=== PATIENT | female | born 1945 | race Caucasian/White ===

== ENCOUNTER 2019-07-15 06:29 | Day surgery (SDC) | payer MEDICARE, SELFPAY ==
[2019-07-07 14:19] VITALS: BMI 23.3
--- NOTE | 2019-07-08 12:59 | HP_ITS ---
Intake Vital Signs 07/07/19 Body Mass Index (BMI) 23.3 07/07/19 Height 5 ft 1 in 07/07/19 Weight: 126 lb 07/07/19 Body Mass Index (BMI) 23.8 07/07/19 Blood Pressure 145/81 H 07/07/19 Blood Pressure Location Rt brachial 07/07/19 Blood Pressure Position Sitting 07/07/19 Respiratory Rate 18 07/07/19 Pulse Rate 77 07/07/19 Pulse Source Monitor 07/07/19 Temperature 98.3 F 07/07/19 Pulse Ox 96 07/07/19 Oxygen Delivery Method room air Intake Visit Reasons: C-Scope Consult Chief Complaint: Nonstemi Senior Service Aide Required: No Is patient in pain?: No Allergies diphtheria,pertussis (acellular),te [From Adacel(Tdap Adolesn/Adult)(PF)] Allergy (Verified 07/07/19 14:16) Hives Sulfa (Sulfonamide Antibiotics) Allergy (Verified 07/07/19 14:16) Rash Medications Aspirin [Aspirin, Baby] 81 mg PO DAILY@0800 08/05/15 [History Confirmed 07/07/19] Calcium Carbonate/Vitamin D3 [Calcium 600 + D Tablet] 3 ea PO BID 08/05/15 [History Confirmed 07/07/19] Clopidogrel Bisulfate [Plavix] 75 mg PO DAILY@0800 #30 tab 08/25/15 [Rx Confirmed 07/07/19] Atorvastatin Calcium [Lipitor] 20 mg PO QHS 04/04/16 [History Confirmed 07/07/19] Biotin/Keratin [Biotin Plus Keratin Tablet] 1 ea PO BID 04/04/16 [History Confirmed 07/07/19] Carbamazepine [Tegretol] 200 mg PO BIDCM 04/04/16 [History Confirmed 07/07/19] Etodolac [Lodine] 200 mg PO BIDCM PRN 08/08/17 [History Confirmed 07/07/19] levothyroxine 75 mcg tablet 75 mcg PO QDAY tab 12/13/17 [History Confirmed 07/07/19] nitroglycerin 0.4 mg sublingual tablet 0.4 mg SUBLINGUAL Q5M PRN 12/13/17 [History Confirmed 07/07/19] cholecalciferol (vitamin D3) 5,000 unit tablet 5,000 unit PO DAILY 10/29/18 [History Confirmed 07/07/19] methocarbamol 500 mg tablet 500 mg PO TID PRN tab 09/23/18 [History Confirmed 07/07/19] metoprolol tartrate 25 mg tablet 12.5 mg PO BID #90 tab 05/21/19 [Rx Confirmed 07/07/19] [facility] Medical History Presence of stent in coronary artery (Chronic ~08/12/15) Essential hypertension (Chronic) HLD (hyperlipidemia) (Chronic) Fatigue (Chronic) Atherosclerotic heart disease of [place] coronary artery without angina pectoris (Chronic) Dyspnea (Chronic) Abnormal results of pulmonary function studies (Chronic) [place] (obstructive sleep apnea) (Chronic) Other chest pain (Chronic) Hypothyroidism (Chronic) CHF (congestive heart failure) (Chronic) TIA (transient ischemic attack) (Acute) Abnormal cardiac enzyme level (Chronic) Headache (Chronic) Scoliosis (Chronic) Subendocardial myocardial infarction (Chronic) Trigeminal neuralgia (Chronic) HTN (hypertension) (Inactive) Surgical History History of left heart catheterization (LHC) (Chronic) Presence of coronary angioplasty implant and graft (Chronic ~08/12/15) H/O partial thyroidectomy (Resolved ~11/16/11) Family History Father Cancer Mother Breast cancer Social History (Updated 07/08/19 @ 12:59 by Chrystal Lopes PA-C) Smoking Status: Never smoker alcohol intake: never substance use type: does not use caffeine: Yes Type: carbonated beverages, coffee, tea what type of physical activity do you participate in: other details: PT frequency: 1-2 times per week duration: 30-45 minutes/day seatbelt use: always do you feel safe at home: Yes HPI HPI HPI: HUSSEIN GARCIA, is a 74 F who presents to the office today for HPI HPI Surgical H&P: Yes HPI: HUSSEIN GARCIA, is a 74 F who presents to the office today for screening colonoscopy. Patient denies change in bowel habits, melena, constipation, diarrhea. She notes very occasional bouts of bright red blood per rectum when wiping with toilet paper. She denies pain at the rectum. She denies heartburn, reflux symptoms, chest pain or shortness of breath. Patient's last colonoscopy was by Dr. Sweet on 04/01/2014. Findings included hemorrhoids found on digital rectal exam and moderate diverticulosis in the entire exam. Patient notes her father had colon cancer. Patient notes previous myocardial infarction and stent placement approximately 4 years ago. Patient is currently on Plavix. Dr. Arenas is her ip litigation associate. Patient denies previous complications with anesthesia. Patient does note that a little bit of anesthesia goes a long way. ROS General General: Yes fatigue; no weight change, appetite, colon cancer, breast cancer or weakness HEENT HEENT: No difficulty swallowing, eye injury, eye surgery, swollen glands or hoarseness Endo Endocrine: Yes thyroid disease; no diabetes mellitus, thyroid cancer, Hair loss, heat intolerance or cold intolerance Skin Skin: No rash or changing moles Breast Breast: No left breast lump, right breast lump, nipple discharge, breast pain, abnormal mammogram, abnormal US or breast enlargement Musc Musculoskeletal: Yes back problems; no arthritis, rheumatoid arthritis, gout or joint pain Cardio Cardiovascular: Yes heart attack and heart stent; no murmur, pacemaker, heart disease, atrial fibrillation, high blood pressure, palpitations, shortness of breat with exertion or chest pain Psych Psychiatric: No depression, anxiety or hearing voices Resp Respiratory: No shortness of breath, Yes sleep apnea, No cough, No COPD, No asthma, No emphysema, No wheezing Gastro Gastrointestinal: No abdominal pain, No nausea or vomiting, No diarrhea, No constipation, No blood in stool, No acid reflux, No hemorrhoids, No ulcers, No gallbladder problem, No black,tarry stools Wil[place] Hematologic: Yes blood thinners, No blood disorders, No bleeding, No anemia, No blood clots Neuro Neurologic: No system reviewed and no additional complaints, except as docu, No as per HPI, No abnormal walking, No abnormal hearing, No abnormal movements, No abnormal speech, No behavioral changes, No burning sensations, No confusion, No seizure-like activity, No unsteadiness, No dizziness, No localized weakness, No frequent falls, No headache(s), No lack of coordination, No loss of vision, No memory loss, Yes numbness, No other visual disturbances, No radiating pain, No restless legs, No sensory deficit, No fainting, Yes tingling, No tremor(s), No weakness, Yes other (Stroke/TIA) Exam Const General: cooperative, healthy appearing, comfortable, no acute distress HENMT Head: normal to inspection Eyes General: appearance normal, both eyes and all related structures Neck Neck: normal visual inspection Neck mass: No Chest Breast Palpation: No nipple discharge Resp Effort & Inspection: normal respiratory effort Auscultation: clear to auscultation bilaterally Cardio Rate: regular rate Rhythm: regular rhythm Heart Sounds: no murmurs GI Inspection: normal to inspection Palpation: soft Auscultation: normal bowel sounds Skin General: no rashes or lesions noted Neuro General: no focal motor deficits, CN's II-XI intact bilaterally Extrem General: normal to inspection Psych Appearance: grossly normal Affect: normal affect Assessment & Plan Problems 1. Encounter for screening colonoscopy Z11.[address] Sweet will plan to perform a colonoscopy under procedural sedation. Procedure details, risks and benefits have been explained to the patient. We will plan to utilize Miralax prep for a bowel prep. Patient has had the opportunity to ask and have questions answered. Patient verbally understands and agrees with the plan. Patient may continue her aspirin. She will hold her Plavix for 3 days prior to the procedure. Coding Level of Care Code Off vis,new,level 3 Diagnoses Encounter for screening colonoscopy Z.07/08/19 2579 <Electronically signed by Chrystal call PA-C> Date _ Chrystal Lopes PA-C I have re-examined the patient. There are no clinical changes since date of exam.
[2019-07-15] VITALS (12 sets, daily range): BP systolic 90–146; BP diastolic 57–95; PULSE 67–80; RESP 14–16; TEMP 36.2–36.8; O2SAT 70–100; BMI 23.6
[2019-07-15] MEDS: Lactated Ringers 1,000 ML 75 ML IV (07:06)
--- NOTE | 2019-07-15 08:20 | OP.ENDO_ITS ---
07/15/2019 Salbador Krueger [address] [id number] Re : Colonoscopy procedure for Cherelle Lindsey Dear Dr. Krueger This procedure was performed on Monday, July 15, 2019. My impressions and recommendations are as follows: Impressions : - Hemorrhoids found on perianal exam. - Diverticulosis in the sigmoid colon and in the descending colon. - Tortuous colon. - No specimens collected. Recommendations : - Discharge patient to home. - Resume previous diet. - Continue present medications. - Repeat colonoscopy in 5 years for surveillance. My findings are described in the full procedure note, which is enclosed. If I can be of further assistance, please feel free to contact me at Doctor phone number(s): Work: . Sincerely, Abdirahman Sweet MD 07/15/2019 8:20:32 AM This report has been signed electronically.
== END 2019-07-15 10:11 | disposition home or self-care (01) ==
LOC: EN 06:30 → AC 06:37
PROVIDERS: Family Provider Student in an Organized Health Care Education/Training Program; PCP Student in an Organized Health Care Education/Training Program; Referring Provider Student in an Organized Health Care Education/Training Program; Visit Provider Surgery
PROC: 0DJD8ZZ Inspection of Lower Intestinal Tract, Via Natural or Artificial Opening Endoscopic (ICD-10-PCS; CPT 45378; principal; 2019-07-15 07:25)
DX: Z12.11 Encounter for screening for malignant neoplasm of colon (principal); K57.30 Diverticulosis of large intestine without perforation or abscess without bleeding; K64.9 Unspecified hemorrhoids; I25.2 Old myocardial infarction; Z80.0 Family history of malignant neoplasm of digestive organs; E78.5 Hyperlipidemia, unspecified; I25.10 Atherosclerotic heart disease of native coronary artery without angina pectoris; G47.33 Obstructive sleep apnea (adult) (pediatric); E03.9 Hypothyroidism, unspecified; G50.0 Trigeminal neuralgia; I10 Essential (primary) hypertension; Z88.2 Allergy status to sulfonamides; Z86.73 Personal history of transient ischemic attack (TIA), and cerebral infarction without residual deficits; Z79.82 Long term (current) use of aspirin; Z79.02 Long term (current) use of antithrombotics/antiplatelets; Z95.5 Presence of coronary angioplasty implant and graft
CPT/HCPCS: G0105; 99152; 99153; J7120; J2310

== ENCOUNTER → 2020-01-15 13:38 | Outpatient (CLI) | payer MEDICARE, SELFPAY ==
[2020-01-01 09:17] VITALS: BMI 24.1
--- NOTE | 2020-01-15 13:40 | ECHOD_ITS ---
Reason For Study: DYSPNEA/SOB Procedure This was a 2D Doppler, Color Flow transthoracic echocardiogram. The exam was of adequate technical quality. Exam performed in department. Left Ventricle Normal LV size. Sigmoid septum. Left ventricular systolic function is normal. The estimated ejection fraction is 70 %. No evidence for diastolic dysfunction. No regional wall motion abnormalities noted. Right Ventricle Normal right ventricle. Normal systolic function. Atria Normal left atrium. Normal right atrium. No doppler evidence for ASD. Mitral Valve There is no mitral annular calcification. Normal mitral valve. Trivial mitral valve insufficiency. Tricuspid Valve Normal tricuspid valve. Mild tricuspid valve insufficiency. Right ventricular systolic pressure estimated to be 34 mmHg. Aortic Valve Trisinus/trileaflet aortic valve. Normal aortic valve. Pulmonic Valve The pulmonic valve is not well visualized. Trivial pulmonic valve insufficiency. Great Vessels Normal sized aortic root. Pericardium/Pleural No pericardial effusion. MMode/2D Measurements & Calculations LVIDd: 3.3 cm IVSd: 1.1 cm Ao root diam: 3.3 cm LVIDs: 1.9 cm LVPWd: 0.96 cm LA dimension: 2.8 cm RVDd: 2.8 cm FS: 41.7 % LAV(MOD-bp): 32.5 ml LA A4 area: 13.0 cm2 RA A4 area: 11.1 cm2 LAV(MOD-bp) Indexed: 20.3 ml/m2 LAV(MOD-sp2): 36.4 ml LAV(MOD-sp4): 30.1 ml Time Measurements MV dec time: 0.19 sec Doppler Measurements & Calculations MV E max konrad: 59.8 cm/sec Lat Peak E' Konrad: 5.0 cm/sec Med Peak E' Konrad: 5.7 cm/sec MV A max konrad: 79.2 cm/sec E/E' lat: 11.9 E/E' med: 10.5 MV E/A: 0.75 Ao V2 max: 116.2 cm/sec LV V1 max: 98.6 cm/sec PA V2 max: 96.6 cm/sec Ao max P.4 mmHg LV V1 max P.9 mmHg Ao V2 mean: 89.1 cm/sec LV V1 mean P.2 mmHg Ao mean P.4 mmHg LV V1 mean: 69.8 cm/sec Ao V2 VTI: 23.9 cm LV V1 VTI: 19.8 cm TR max konrad: 278.0 cm/sec TR max P.9 mmHg Interpretation Summary Left ventricular systolic function is normal. The estimated ejection fraction is 70 %. Sigmoid septum. Trivial mitral valve insufficiency. Mild tricuspid valve insufficiency. Trivial pulmonic valve insufficiency. Right ventricular systolic pressure estimated to be 34 mmHg. No evidence for diastolic dysfunction. Ordering Physician: Hossein Wright Referring Physician: Obed Cespedes Performed By: Connie Madrid RDCS, RVT
== END ==
PROVIDERS: PCP Student in an Organized Health Care Education/Training Program; Referring Provider Nurse Practitioner Family; Visit Provider Nurse Practitioner Family
DX: I25.10 Atherosclerotic heart disease of native coronary artery without angina pectoris (principal); I50.9 Heart failure, unspecified; R06.09 Other forms of dyspnea
CPT/HCPCS: 93306

== ENCOUNTER 2020-01-16 18:23 | Observation (INO) | payer MEDICARE, SELFPAY ==
[2020-01-01 09:17] VITALS: BMI 24.1
[2020-01-16 18:24] VITALS: BP 188/102; PULSE 76; RESP 15; TEMP 36; O2SAT 99; BMI 22.8
--- NOTE | 2020-01-16 18:47 | RAD_ITS ---
STUDY: X-RAY - PELVIS AND RIGHT HIP REASON FOR EXAM: Female, 74 years old. FALL, HIP AND ANKLE PAIN TECHNIQUE: 3 views of the pelvis and hip. COMPARISON: None. FINDINGS: There is a non-specific bowel gas pattern. Normal visualized soft tissue structures. Normal bilateral iliac wings, sacroiliac joints and visualized sacrum. Normal bilateral superior and inferior pubic rami. Normal pubic symphysis. Normal bilateral ischial tuberosities. There is left hip pin fixation with intramedullary alireza. Normal visualized femoral head. Normal acetabulum. Normal hip joint. RAD/HIP, UNI W/ Pelvis 2-3 Views IMPRESSION: Normal x-ray examination of the pelvis and right hip. Electronically Signed: Zehra Rodriguez, at 19:58 EST Tel , Service support ,
--- NOTE | 2020-01-16 18:47 | CT_ITS ---
STUDY: CT BRAIN WITHOUT CONTRAST REASON FOR EXAM: Female, 74 years old. Trauma RADIATION DOSAGE (If Supplied By Facility): CTDIvol = ( 44.99 ) mGy, DLP = ( 779.24 ) mGycm TECHNIQUE: Transaxial CT imaging of the brain was performed without administration of intravenous contrast material. Individualized dose optimization techniques were used for this CT. COMPARISON: 08 August 2017 FINDINGS: Brain parenchyma is without focal lesions, mass effect, acute intracranial hemorrhage, extra parenchymal fluid collections, hydrocephalus or herniation. The skull is intact. CT/Brain/Head without Contrast IMPRESSION: 1. Normal CT brain. No acute intracranial injury. Electronically Signed: Zehra Rodriguez, at 19:16 EST Tel , Service support ,
--- NOTE | 2020-01-16 18:52 | ED.DCSUM_ITS ---
- ER Visit Summary Date of Service: 01/16/20 Chief Complaint: Tripped and fell with right lateral forehead head injury on Plavix History of Present Illness: The patient is a [address] CAD with [place] with one cardiac stent on Plavix. Also has a history of prior left femur fracture with alireza. Patient tripped and fell this evening at home at 1745. When she fell she struck the right side of her head along her pentecostalism on the fireplace. She denies any loss of conscious. She also complains of right hip and right ankle pain. She was helped up. Has ambulated since then. Prior to the fall she was feeling fine. She denies any neck pain. No numbness or weakness to the upper or lower extremities. Physical Examination: Older female vital signs are stable. HEENT exam pupils round reactive light. She has a small 1 to 2 cm laceration right lateral forehead that is actively bleeding. There is a small hematoma. She is holding pressure to it with a clot. Pupils round reactive light. Scalp otherwise no other signs of trauma. There is dried blood. C-spine nontender. Trachea m idline. Lungs clear to auscultation. Heart regular rhythm no murmur. Chest wall nontender. Abdomen soft nontender. Pelvic girdle intact. Mild pain on palpation to right hip. No shortening or rotation. She is able to flex and extend her right hip. Right knee nontender. Right ankle mildly swollen with an abrasion. No gross deformity. Dorsi plantarflexion intact. Right upper and left upper extremities are unremarkable with normal range of motion and typewriter tester strength. No deformities or tenderness. Left lower extremity is nontender normal range of motion. Back is nontender. Neurologically she is awake and alert with no focal motor deficits. Test Results: CAT scan of her brain without contrast as read by the radiologist and reviewed by me shows no acute abnormality. No skull fracture. No intracranial bleed. Right hip and pelvis x-ray views read by myself shows no acute abnormality. No fracture. No dislocation. Right ankle x-ray 3 views read by me acute abnormality. No fracture or dislocation. Emergency Department Course and Treatment: This is up-to-date. She will need a CAT scan and x-rays for her fall. Eventually I will suture of the right lateral forehead laceration. Her tetanus is up-to-date. Procedure note. Right lateral forehead laceration to 9 cm. Lidocaine with epinephrine. Washed with Shur-Clens and saline explored. Closed using two 5-0 Ethilon simple interrupted sutures. Proper hemostasis wound closure obtained. Family and patient instructed on wound care. Suture removal in 7 to 10 days. Repeat exam she is doing well. There are no new injuries. She is a hematoma on her right hip but does not appear to be expanding. Patient will be ambulated prior to discharge by nursing Treatment Plan: We start the patient try to ambulate her and given her age, head injury, right hip contusion and right ankle sprain she was unable to walk. We attempted a second time later when we let her rest and again was unable. I discussed with her and the family and the hospitalist and she will come in overnight. Disposition: dc Impression: Acute fall with right sided head injury on Plavix Concussion Right lateral forehead laceration with ER repair of 2.5 cm Fall with right hip contusion and hematoma Fall with right ankle sprain Unable to ambulate secondary to all the above This note was generated with [employer] dictation software. It may contain incorrect words, spelling, and punctuation that were not noted in review of the chart prior to signing ED Disposition - Plan for ED Patient: Disposition: Home or Assisted Living Instructions: Sprain, Ankle, with X-Ray, CONCUSSION w/ Wake Up, Hip Contusion, LACERATION, Face (Suture or Tape) Referrals: Salbador Krueger, [Primary Care Provider] - 1 Week Additional Instructions: Wound care. Keep area dry and clean. Apply antibiotic ointment to laceration repaired once daily. Suture removal in 7 to 10 days. Ice to scalp, hip and ankle. Aircast to help you walk on your ankle sprain. Watch the bruising of the right hip if it is getting a lot larger have it reevaluated. Follow-up if hip pain and ankle pain do not continually improve over the next 1 to 2 weeks. At this time the x-rays are unremarkable. A CAT scan of your head is negative. There is no bleeding. Return if severe headache, intractable vomiting or not acting her normal self. Hold your Plavix dose tomorrow morning then restart normally on Sunday. Tylenol for pain. Stay with someone tonight or they should stay in her house to keep an eye on you. Be very careful walking due to your bruised hip, sprained ankle and your head injury you are at extremely high risk to fall again.
--- NOTE | 2020-01-16 19:08 | RAD_ITS ---
STUDY: X-RAY - RIGHT ANKLE REASON FOR EXAM: Female, 74 years old. FALL, HIP AND ANKLE PAIN TECHNIQUE: 3 view(s) of the ankle. COMPARISON: None. FINDINGS: Normal visualized distal tibia and fibula. Normal medial and lateral malleoli. Normal tibiotalar articulation and ankle mortise. Normal visualized talus and calcaneus. The visualized subtalar, talonavicular, calcaneocuboid and tarsal articulations are normal. The soft tissue structures are unremarkable. RAD/Ankle min 3 Views IMPRESSION: Normal x-ray examination of the ankle. Electronically Signed: Zehra Rodriguez, at 19:59 EST Tel , Service support ,
[2020-01-16] MEDS: Lidocaine/Epi/Tetracaine 50 ML 1 APPLIC TOPICAL (19:15)
--- NOTE | 2020-01-16 19:56 | DCINST.ED_ITS ---
ED Disposition - Plan for ED Patient: Disposition: Home or Assisted Living Instructions: CONCUSSION w/ Wake Up, LACERATION, Face (Suture or Tape), Hip Contusion, Sprain, Ankle, with X-Ray Referrals: Salbador Krueger DO [Primary Care Provider] - 1 Week Additional Instructions: Wound care. Keep area dry and clean. Apply antibiotic ointment to laceration repaired once daily. Suture removal in 7 to 10 days. Ice to scalp, hip and ankle. Aircast to help you walk on your ankle sprain. Watch the bruising of the right hip if it is getting a lot larger have it reevaluated. Follow-up if hip pain and ankle pain do not continually improve ov er the next 1 to 2 weeks. At this time the x-rays are unremarkable. A CAT scan of your head is negative. There is no bleeding. Return if severe headache, intractable vomiting or not acting her normal self. Hold your Plavix dose tomorrow morning then restart normally on Sunday. Tylenol for pain. Stay with someone tonight or they should stay in her house to keep an eye on you. Be very careful walking due to your bruised hip, sprained ankle and your head injury you are at extremely high risk to fall again.
--- NOTE | 2020-01-16 21:05 | ED.RN ---
PT WAS WALKED WITH THIS RN AND NEEDED THE HELP OF ONE FAMILY MEMBER ON THE OTHER SIDE. PT WAS EXTREMELY DIZZY WHILE AMBULATING TO THE BATHROOM. PT NEEDED ASSISTANCE WHILE IN THE BATHROOM. PT STOPPED AND ROCKED BACK AND FORTH SEVERAL TIMES DURING AMBULATION DUE TO DIZZINESS
--- NOTE | 2020-01-16 21:21 | PCM.HP.STD ---
Problem List (1) Fall Status: Acute (2) Head injury Status: Acute (3) Right ankle injury Status: Acute (4) Injury of right hip Status: Acute History of Present Illness Date of Admission: 01/16/20 Chief Complaint: FALL The patient is a 74 year old F with a significant history of hypertension; hyperlipidemia; congestive heart failure; CAD status post stents who presents emergency department with a fall. Patient tripped over a treadmill and fell. She landed on a fireplace with the right side of her forehead. She also sustained injury on her right hip and her right ankle. She has pain in these areas. At the emergency department emergency department doctor placed 2 stitches at the injury site of the right forehead. Patient was made to ambulate at the emergency department. She reported with ambulation she felt lightheaded and needed help walking. Decision was made to admit patient. Patient reports that her last tetanus injection was less than 10 years ago. Past Medical History Past Medical History (Chronic Problems): Chronic Problems (Last Reviewed 01/16/20 @ 21:[address] Fernando Norman MD) Presence of stent in coronary artery (Chronic ~08/12/15) PTCA/JONNIE to mid LAD 08/12/2015; Essential hypertension (Chronic) HLD (hyperlipidemia) (Chronic) Fatigue (Chronic) Atherosclerotic heart disease of [place] coronary artery without angina pectoris (Chronic) PTCA with JONNIE to mid LAD 08/12/2015; [facility]: 08/11/2015 Dyspnea (Chronic) Abnormal results of pulmonary function studies (Chronic) [place] (obstructive sleep apnea) (Chronic) Other chest pain (Chronic) Hypothyroidism (Chronic) CHF (congestive heart failure) (Chronic) Medical History: Medical History (Last Reviewed 01/17/20 @ 00:[address] Fernando Norman MD) Presence of stent in coronary artery (Chronic) Onset Date: ~08/12/15 Z95.5 PTCA/JONNIE to mid LAD 08/12/2015; Essential hypertension (Chronic) I10 HLD (hyperlipidemia) (Chronic) E78.5 Fatigue (Chronic) R53.83 Atherosclerotic heart disease of [place] coronary artery without angina pectoris (Chronic) I25.10 PTCA with JONNIE to mid LAD 08/12/2015; [facility]: 08/11/2015 Dyspnea (Chronic) R06.00 Abnormal results of pulmonary function studies (Chronic) R94.2 [place] (obstructive sleep apnea) (Chronic) G47.33 Other chest pain (Chronic) R07.89 Hypothyroidism (Chronic) E03.9 CHF (congestive heart failure) (Chronic) I50.9 TIA (transient ischemic attack) G45.9 Abnormal cardiac enzyme level R74.8 Headache R51 Scoliosis 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 Trigeminal neuralgia G50.0 HTN (hypertension) (Inactive) I10 Allergies diphtheria,pertussis (acellular),te [From Adacel(Tdap Adolesn/Adult)(PF)] Allergy (Verified 01/01/20 09:52) Hives Sulfa (Sulfonamide Antibiotics) Allergy (Verified 01/01/20 09:52) Rash Home Medications: Ambulatory Orders Medication Instructions Recorded Aspirin [Aspirin, Baby] 162 mg PO DAILY@0800 08/05/15 Calcium Carbonate/Vitamin D3 3 ea PO BID 08/05/15 [Calcium 600 + D Tablet] Clopidogrel Bisulfate [Plavix] 75 mg PO DAILY@0800 #30 tab 08/25/15 Atorvastatin Calcium [Lipitor] 20 mg PO QHS 04/04/16 Biotin/Keratin [Biotin Plus 2 ea PO QHS 04/04/16 Keratin Tablet] Carbamazepine [Tegretol] 200 mg PO BIDCM 04/04/16 Etodolac [Lodine] 200 mg PO BIDCM PRN 08/08/17 levothyroxine 75 mcg tablet 75 mcg PO SUTUTHFR tab 12/13/17 nitroglycerin 0.4 mg sublingual 0.4 mg SUBLINGUAL Q5M PRN 12/13/17 tablet cholecalciferol (vitamin D3) 125 5,000 unit PO DAILY 09/23/18 mcg (5,000 unit) tablet methocarbamol 500 mg tablet 500 mg PO TID PRN tab 09/23/18 metoprolol tartrate 25 mg tablet 12.5 mg PO BID #90 tab 05/21/19 Levothyroxine Sodium [Synthroid] 150 mcg PO MOWESA 01/16/20 Surgical History: Surgical History (Last Reviewed 01/17/20 @ 00:[address] Fernando Norman MD) History of left heart catheterization (LHC) Z98.890 [facility]: 08/11/2015 Presence of coronary angioplasty implant and graft Onset Date: ~08/12/15 Z95.5 PTCA with JONNIE to mid LAD 08/12/2015; H/O partial thyroidectomy Onset Date: ~11/16/11 E89.0 Surgical History: - - partial thyroidectemy,left femur fracture with alireza placement, back operation due to sciatic nerve problems Psychiatric History: No pertinent psych hx FORENSIC PSYCHIATRIST History: No pertinent FORENSIC PSYCHIATRIST history Lives: With Family Smoking Status: Never smoker Alcohol: None - *Family History Maternal Family History: Family History (Last Reviewed 01/17/20 @ 00:[address] Fernando Norman MD) Father Cancer Mother Breast cancer History Items: - - mother had a mastectemy, age 73 alzheimers, tia Paternal Family History: Family History (Last Reviewed 01/17/20 @ 00:[address] Fernando Nroman MD) Father Cancer Mother Breast cancer History Items: - - father of luekemia, lot of other cancer colon and lung Sibling Family History: Family History (Last Reviewed 01/17/20 @ 00:[address] Fernando Norman MD) Father Cancer Mother Breast cancer History Items: - - brother gets migraines Offspring Family History: Family History (Last Reviewed 01/17/20 @ 00:[address] Fernando Norman MD) Father Cancer Mother Breast cancer History Items: - - 2 children Review of Systems Constitutional: Denies: Chills, Fever, Weight Change HEENT: Denies: Head Aches, Sinus Congestion, Sinus Drainage Cardiovascular: Reports: Light Headedness. Denies: Chest Pain, Palpitations Respiratory: Denies: Cough, Shortness of breath at rest, Sputum production Gastrointestinal: Denies: Abdominal Pain, Nausea, Vomiting Genitourinary: Denies: Dysuria Musculoskeletal: Denies: Joint Pain, Joint Tenderness Skin: Denies: Rash, Wounds Neurological: Denies: Numbness, Tingling, Focal weakness Psychiatric: Denies: Anxiety, Depression, Homicidal Ideations, Suicidal Ideations Hematologic/ Lymphatic: Denies: Easy Bruising, Easy Bleeding VTE Information - Inpt Only VTE Present on Admission: No VTE Mechan Device Prophylaxis: SCD's VTE Pharm Prophylaxis ordered?: No Patient Problems: Active and Suspected Problems (Last Reviewed 01/16/20 @ 21:[address] Fernando Norman MD) Fall (Acute) Head injury (Acute) Right ankle injury (Acute) Injury of right hip (Acute) - Physical Exam Vitals/I&O's: Vital Signs Temp Pulse Resp BP Pulse Ox 96.8 F L 76 15 188/102 H 99 01/16/20 18:24 01/16/20 18:24 01/16/20 18:24 01/16/20 18:24 01/16/20 18:24 Oxygen Delivery Method Room Air Weight: 56.699 kg Body Mass Index (BMI) 22.8 General: Alert, Oriented x3, Cooperative HEENT: PERRLA, EOMI, Normocephalic, - - Swelling on right forehead with stitches in place. Neck: Supple, No JVD, Negative Carotid Bruits Lungs: Clear to auscultation, Normal air movement, No rhonchi, No wheeze, No rales Cardiovascular: Regular rate, No murmurs Abdomen: Bowel Sounds Present, Soft, Non Tender Extremities: No edema, Capillary Refill Less than 3 Seconds Skin: - - Abrasion on right ankle, tender. Swelling on the right lateral hip, tender. Musculoskeletal: Tenderness Neurological: Cranial nerves II-XII grossly intact Psych/Mental Status: Normal Affect, Appropriate Assessment/Plan All Active Problems (Last Reviewed 01/16/20 @ 21:[address] Fernando Norman MD) Fall (Acute) Head injury (Acute) Right ankle injury (Acute) Injury of right hip (Acute) The patient is a 74 year old F with a significant history of hypertension; hyperlipidemia; congestive heart failure; CAD status post stents who presents at the emergency department with a fall and injury at multiple sites including her scalp.. Fall with injury to scalp; right hip and right ankle Normal CT brain. Normal ankle x-ray Normal hip and pelvis x-ray PT and OT to work with patient. Hold aspirin and Plavix. Received Tylenol at the emergency department. Will start patient on scheduled Tylenol and PRN oxycodone. Hold Plavix and aspirin. Ice to painful areas as needed She reports that her last tetanus shot was less than 10 years ago. CAD status post stents Aspirin and Plavix held in the setting of recent fall. Lipitor and metoprolol continued. Hypothyroidism Levothyroxine continued Chronic pain: methocarbamol continued. Etodolac held to prevent bleeding. Hyperlipidemia Lipitor continued. Hypertension Blood pressure is stable in regard to her age. Metoprolol continued. Trend blood pressure and adjust blood pressure medications. Trigeminal neuralgia Carbamazepine continued Hypothyroidism Synthroid continued DVT prophylaxis SCD. Code Visit OBSV E&M: 41710 Initial observation care L2
[2020-01-16 21:28] VITALS: BP 138/84; PULSE 78; RESP 16; O2SAT 97
[2020-01-16 21:29] VITALS: BP 138/84; PULSE 78; RESP 16; O2SAT 97
[2020-01-16] MEDS: Acetaminophen 500 MG Tablet 1000 MG PO (21:44)
[2020-01-16 22:00] VITALS: BP 150/79; PULSE 79; RESP 16; TEMP 36.7; O2SAT 95
[2020-01-16 22:03] VITALS: BMI 23.3
[2020-01-16 22:14] VITALS: BMI 23.3
[2020-01-16 22:34] VITALS: PULSE 78
[2020-01-16] MEDS: Atorvastatin Calcium 20 MG Tablet PO (22:34)
[2020-01-16] MEDS: oxyCODONE 5 MG Tablet PO (22:34)
[2020-01-16] MEDS: Metoprolol Tartrate 25 MG Tablet 12.5 MG PO (22:34)
[2020-01-17] VITALS (8 sets, daily range): BP systolic 94–121; BP diastolic 58–67; PULSE 64–76; RESP 16–18; TEMP 36.3–36.6; O2SAT 95–98
[2020-01-17] MEDS: Levothyroxine 150 MCG Tablet PO (04:52)
[2020-01-17] MEDS: Acetaminophen 500 MG Tablet PO ×4 (04:52→23:56)
[2020-01-17] MEDS: Methocarbamol 500 MG Tablet PO ×2 (04:56→21:53)
[2020-01-17] MEDS: oxyCODONE 5 MG Tablet PO ×3 (07:17→21:57)
[2020-01-17] MEDS: Calcium Carb/Vitamin D 1 TABLET Tablet 3 TABLET PO ×2 (09:07→17:23)
[2020-01-17] MEDS: carBAMazepine 200 MG Tablet PO ×2 (09:08→17:22)
[2020-01-17] MEDS: Metoprolol Tartrate 25 MG Tablet 12.5 MG PO ×2 (10:52→21:52)
--- NOTE | 2020-01-17 12:44 | PCM.PN.HOSP ---
Patient Problems: Active and Suspected Problems (Last Reviewed 01/17/20 @ 00:[address] Fernando Norman MD) Fall (Acute) Head injury (Acute) Right ankle injury (Acute) Injury of right hip (Acute) Reason for Visit: fall Subjective: Still dizzy, constantly, but worse with movement. Has had vertigo before, which this feels similar to, but did not have headache. Constant diffuse headache. Vitals/I&O's: Vital Signs Temp Pulse Resp BP Pulse Ox 36.5 C L 76 16 103/63 97 01/17/20 11:18 01/17/20 11:18 01/17/20 11:18 01/17/20 11:18 01/17/20 11:18 Oxygen Delivery Method Room Air Weight: 57.9 kg Body Mass Index (BMI) 23.3 Intake and Output for Last 24 Hours 01/15/20 01/16/20 01/17/20 23:59 23:59 23:59 Output Total 200 / 200 500 / 500 Balance -200 / -200 -500 / -500 General: Alert, Cooperative, No apparent distress HEENT: Atraumatic, PERRLA, Normocephalic Oral: Moist Mucosa, No Gingival or Mucosal Lesions/ Ulcerations Neck: No Nodes, Trachea Midline Lungs: Clear to auscultation, Normal air movement, No rhonchi, No wheeze, No rales Cardiovascular: Regular rate, Regular Rhythm, Normal S1, Normal S2 Abdomen: Bowel Sounds Present, Soft, Non Tender, Non-Distended Extremities: No edema, No Calf Tenderness Skin: No rashes, No breakdown Musculoskeletal: No Tenderness to Palpation of Joints or Extremities, No Muscle Wasting Neurological: - - Love Hallpike performed on the right with reproducible dizziness, but not noticeable nystagmus. Psych/Mental Status: Normal Affect, Appropriate Current Medications Acetaminophen (Tylenol) 500 mg PO Q6 [facility] Last Admin: 01/17/20 12:35 Dose: 500 mg Documented by: Atorvastatin Calcium (Lipitor) 20 mg PO QHS [facility] Last Admin: 01/16/20 22:34 Dose: 20 mg Documented by: Calcium/Vitamin D (Os-M[place] 500mg + D) [facility] Last Admin: 01/17/20 09:07 Dose: 3 tablet Documented by: Carbamazepine ([facility]egretol) [facility] Last Admin: 01/17/20 09:08 Dose: 200 mg Documented by: Cholecalciferol (Vitamin D (25mcg)) 5,000 unit PO DAILY [facility] Last Admin: 01/17/20 09:08 Dose: 5,000 unit Documented by: Glucagon () 1 mg IM .X1 PRN PRN Reason: Hypoglycemia Dextrose (Dextrose 10%-Water) 250 mls @ 999 mls/hr IV .Q16M PRN; Protocol PRN Reason: HYPOGLYCEMIA Levothyroxine Sodium (Synthroid) 150 mcg PO MoWeSa@0600 [facility] Last Admin: 01/17/20 04:52 Dose: 150 mcg Documented by: Levothyroxine Sodium (Synthroid) 75 mcg PO SuTuThFr@0600 [facility] Meclizine HCl (Antivert) 12.5 mg PO TID PRN PRN PRN Reason: DIZZINESS Methocarbamol (Robaxin) 500 mg PO TID PRN PRN PRN Reason: Muscle spasms Last Admin: 01/17/20 04:56 Dose: 500 mg Documented by: Metoprolol Tartrate (Lopressor (Beta Roger)) 12.5 mg PO BID [facility] Last Admin: 01/17/20 10:52 Dose: 12.5 mg Documented by: Ondansetron HCl (Zofran) 4 mg IV Q8H PRN PRN PRN Reason: NAUSEA/VOMITING Oxycodone HCl (Oxyir) 5 mg PO Q4H PRN PRN PRN Reason: Pain Score 6-10/10 Last Admin: 01/17/20 07:17 Dose: 5 mg Documented by: Senna/Docusate Sodium (Senokot-S, Jyoti-Colace) 2 tablet PO BID PRN PRN PRN Reason: Constipation Sodium Chloride () 10 - 40 ml IV UD PRN PRN Reason: SALINE FLUSH STROKE Vital Signs/Narrative: Vital Signs Temp Pulse Resp BP Pulse Ox 01/17/20 11:18 36.5 C L 76 16 103/63 97 01/17/20 10:52 76 01/17/20 09:15 36.6 C 71 16 94/58 L 95 Medical Necessity - Tobacco Use Smoking Status: Never smoker Assessment/Plan All Active Problems (Last Reviewed 01/17/20 @ 00:[address] Fernando Norman MD) Fall (Acute) Head injury (Acute) Right ankle injury (Acute) Injury of right hip (Acute) 1. acute vertigo suspect d/t BPPV pt may have dislodged an otolith when she struck her head PRN meclizine PT for vestibular rehab 2. post-concussion syndrome d/w patient and family to minimize lights, screens and interactions at this time supportive mgmt 3. migraine aggravated by above minimize triggers no narcotics acetaminophen if persists, consider additional agents (dexamethasone, etc.) 4. VTE prophylaxis: mod risk. SCDs as patient not being discharged today. DW family at bedside. Code Visit OBSV E&M: 89439 Subsequent observation care L2
[2020-01-17] MEDS: Meclizine 12.5 MG Tablet PO ×2 (14:52→21:57)
[2020-01-17] MEDS: Atorvastatin Calcium 20 MG Tablet PO (21:52)
[2020-01-18] VITALS (8 sets, daily range): BP systolic 98–121; BP diastolic 43–80; PULSE 63–71; RESP 16; TEMP 36.3–36.6; O2SAT 94–99
[2020-01-18] MEDS: oxyCODONE 5 MG Tablet PO ×3 (03:59→16:33)
[2020-01-18] MEDS: Acetaminophen 500 MG Tablet PO ×4 (05:07→23:59)
[2020-01-18] MEDS: Levothyroxine 75 MCG Tablet PO (05:16)
[2020-01-18] MEDS: Calcium Carb/Vitamin D 1 TABLET Tablet 3 TABLET PO ×2 (08:28→16:33)
[2020-01-18] MEDS: Metoprolol Tartrate 25 MG Tablet 12.5 MG PO ×2 (08:29→21:39)
[2020-01-18] MEDS: carBAMazepine 200 MG Tablet PO ×2 (08:29→16:33)
[2020-01-18] MEDS: Meclizine 12.5 MG Tablet PO (08:32)
--- NOTE | 2020-01-18 10:44 | CT_ITS ---
STUDY: CT BRAIN WITHOUT CONTRAST REASON FOR EXAM: Female, 74 years old. Recent fall, headache. RADIATION DOSAGE (If Supplied By Facility): CTDIvol = ( 44.99 ) mGy, DLP = ( 846.73 ) mGycm TECHNIQUE: Transaxial CT imaging of the brain was performed without administration of intravenous contrast material. Individualized dose optimization techniques were used for this CT. COMPARISON: 01/16/2020. FINDINGS: Normal soft tissue structures. Normal calvarium. The ventricles are normal in size and position. There is prominence of the cortical sulci. There are areas of decreased attenuation within the white matter tracts of the supratentorial brain, consistent with microvascular disease changes. Normal basal ganglia and thalami. Normal brainstem. Normal cerebellum. There is no intracranial hemorrhage. There are no findings of an acute ischemic infarction. Normal visualized paranasal sinuses. CT/Brain/Head without Contrast IMPRESSION: No acute intracranial process. Electronically Signed: Remy Watkins MD at 13:44 EST Tel , Service support ,
--- NOTE | 2020-01-18 11:08 | NURSING ---
pt to ct scan
--- NOTE | 2020-01-18 16:16 | PN_ITS ---
Patient Problems: Active and Suspected Problems (Last Reviewed 01/17/20 @ 00:[address] Fernando Norman MD) Fall (Acute) Head injury (Acute) Right ankle injury (Acute) Injury of right hip (Acute) Reason for Visit: fall Subjective: Still with headache. Dizziness ongoing, but improved. Worse with mvmt. Vitals/I&O's: Vital Signs Temp Pulse Resp BP Pulse Ox 36.4 C L 71 16 106/62 96 01/18/20 13:59 01/18/20 13:59 01/18/20 13:59 01/18/20 13:59 01/18/20 13:59 Oxygen Delivery Method Room Air Weight: 57.9 kg Body Mass Index (BMI) 23.3 Intake and Output for Last 24 Hours 01/16/20 01/17/20 01/18/20 23:59 23:59 23:59 Intake Total 450 / 450 350 / 350 Output Total 200 / 200 500 / 500 Balance -200 / -200 -50 / -50 350 / 350 General: Alert, No apparent distress HEENT: EOMI, Normocephalic Oral: Moist Mucosa, No Gingival or Mucosal Lesions/ Ulcerations Lungs: Clear to auscultation, Normal air movement, No rhonchi, No wheeze, No rales Cardiovascular: Regular rate, Regular Rhythm, Normal S1, Normal S2, No murmurs Abdomen: Bowel Sounds Present, Soft, Non Tender, Non-Distended, No Hepato- splenomegaly Extremities: No edema, No Calf Tenderness Skin: No rashes, No breakdown Musculoskeletal: No Tenderness to Palpation of Joints or Extremities, No Muscle Wasting Psych/Mental Status: Normal Affect, Appropriate Current Medications Acetaminophen (Tylenol) 500 mg PO Q6 [facility] Last Admin: 01/18/20 11:34 Dose: 500 mg Documented by: Atorvastatin Calcium (Lipitor) 20 mg PO QHS [facility] Last Admin: 01/17/20 21:52 Dose: 20 mg Documented by: Calcium/Vitamin D (Os-[place] 500mg + D) [facility] Last Admin: 01/18/20 08:28 Dose: 3 tablet Documented by: Carbamazepine (Tegretol) 200 mg PO BIDCM [facility] Last Admin: 01/18/20 08:29 Dose: 200 mg Documented by: Cholecalciferol (Vitamin D (25mcg)) 5,000 unit PO DAILY [facility] Last Admin: 01/18/20 08:29 Dose: 5,000 unit Documented by: Glucagon () 1 mg IM .X1 PRN PRN Reason: Hypoglycemia Dextrose (Dextrose 10%-Water) 250 mls @ 999 mls/hr IV .Q16M PRN; Protocol PRN Reason: HYPOGLYCEMIA Levothyroxine Sodium (Synthroid) 150 mcg PO MoWeSa@0600 [facility] Last Admin: 01/18/20 05:07 Dose: 150 mcg Documented by: Levothyroxine Sodium (Synthroid) 75 mcg PO SuTuThFr@0600 [facility] Last Admin: 01/18/20 05:16 Dose: 75 mcg Documented by: Meclizine HCl (Antivert) 12.5 mg PO TID PRN PRN PRN Reason: DIZZINESS Last Admin: 01/18/20 08:32 Dose: 12.5 mg Documented by: Methocarbamol (Robaxin) 500 mg PO TID PRN PRN PRN Reason: Muscle spasms Last Admin: 01/17/20 21:53 Dose: 500 mg Documented by: Metoprolol Tartrate (Lopressor (Beta Roger)) 12.5 mg PO BID [facility] Last Admin: 01/18/20 08:29 Dose: 12.5 mg Documented by: Ondansetron HCl (Zofran) 4 mg IV Q8H PRN PRN PRN Reason: NAUSEA/VOMITING Oxycodone HCl (Oxyir) 5 mg PO Q4H PRN PRN PRN Reason: Pain Score 6-10/10 Last Admin: 01/18/20 08:32 Dose: 5 mg Documented by: Senna/Docusate Sodium (Senokot-S, Jyoti-Colace) 2 tablet PO BID PRN PRN PRN Reason: Constipation Sodium Chloride () 10 - 40 ml IV UD PRN PRN Reason: SALINE FLUSH STROKE Vital Signs/Narrative: Vital Signs Temp Pulse Resp BP Pulse Ox 01/18/20 13:59 36.4 C L 71 16 106/62 96 Medical Necessity - Tobacco Use Smoking Status: Never smoker Assessment/Plan All Active Problems (Last Reviewed 01/17/20 @ 00:[address] Fernando Norman MD) Fall (Acute) Head injury (Acute) Right ankle injury (Acute) Injury of right hip (Acute) 1. acute vertigo * suspect d/t BPPV * pt may have dislodged an otolith when she struck her head * PRN meclizine * PT for vestibular rehab 2. post-concussion syndrome * d/w patient and family to minimize lights, screens and interactions at this time * supportive mgmt 3. migraine * aggravated by above * minimize triggers * no narcotics * acetaminophen * if persists, consider additional agents (dexamethasone, etc.) * repeat head CT negative for bleed. will give 10mg of dexamethasone + prn sumatriptan and phenergan/diphenhydramine 4. VTE prophylaxis: mod risk. SCDs as patient not being discharged today. 5. Debility: therapy recommending additional therapy. Await case mgmt input. DW family at bedside. Code Visit OBSV E&M: 05722 Subsequent observation care L2
[2020-01-18] MEDS: DiphenhydrAMINE 25 MG Capsule 50 MG PO (16:33)
[2020-01-18] MEDS: 0.9% Saline Lock 10 ML Syringe IV (16:33)
[2020-01-18] MEDS: dexAMETHasone 10 MG/ML Vial IV (16:33)
[2020-01-18] MEDS: Atorvastatin Calcium 20 MG Tablet PO (21:39)
[2020-01-19 03:18] VITALS: BP 126/90; PULSE 67; RESP 16; TEMP 36.6; O2SAT 97
[2020-01-19] MEDS: Acetaminophen 500 MG Tablet PO ×3 (05:53→17:09)
[2020-01-19] MEDS: Levothyroxine 150 MCG Tablet PO (05:53)
[2020-01-19 07:27] VITALS: O2SAT 96
[2020-01-19] MEDS: Calcium Carb/Vitamin D 1 TABLET Tablet 3 TABLET PO ×2 (08:07→17:10)
[2020-01-19] MEDS: carBAMazepine 200 MG Tablet PO ×2 (08:07→17:09)
[2020-01-19 08:12] VITALS: PULSE 80
[2020-01-19] MEDS: Metoprolol Tartrate 25 MG Tablet 12.5 MG PO (08:12)
[2020-01-19 09:15] VITALS: BP 126/82; PULSE 80; RESP 16; TEMP 36.7; O2SAT 96
[2020-01-19] MEDS: diazePAM 2 MG Tablet PO ×2 (12:07→15:19)
[2020-01-19 15:24] VITALS: BP 119/69; PULSE 85; RESP 16; TEMP 36.4; O2SAT 98
--- NOTE | 2020-01-19 15:58 | PCM.DC ---
- Discharge Diagnoses Current Active Problems: Current Active and Chronic Problems (Last Reviewed 01/17/20 @ 00:[address] Fernando Norman MD) Fall (Acute) Head injury (Acute) Right ankle injury (Acute) Injury of right hip (Acute) You will use the following diet at home:: No restrictions Your food should be the consistency of: Regular Your liquids should be the consistency of: Regular/Thin Discharge Activity: Return to Normal Activity Weight Bearing Status: Full weight bearing Instructions: Sprain, Ankle, with X-Ray, CONCUSSION w/ Wake Up, Hip Contusion, LACERATION, Face (Suture or Tape) Additional Instructions: get your scalp sutures removed this Sunday Allergies/Adverse Reactions: Allergies diphtheria,pertussis (acellular),te [From Adacel(Tdap Adolesn/Adult)(PF)] Allergy (Verified 01/01/20 09:52) Hives Sulfa (Sulfonamide Antibiotics) Allergy (Verified 01/01/20 09:52) Rash Medications to take at Discharge Aspirin [Aspirin, Baby] 162 mg PO DAILY@0800 08/05/15 Calcium Carbonate/Vitamin D3 [Calcium 600 + D Tablet] 3 ea PO BID 08/05/15 Clopidogrel Bisulfate [Plavix] 75 mg PO DAILY@0800 #30 tab 08/25/15 Atorvastatin Calcium [Lipitor] 20 mg PO QHS 04/04/16 Biotin/Keratin [Biotin Plus Keratin Tablet] 2 ea PO QHS 04/04/16 Carbamazepine [Tegretol] 200 mg PO BIDCM 04/04/16 levothyroxine 75 mcg tablet 75 mcg PO SUTUTHFR tab 12/13/17 nitroglycerin 0.4 mg sublingual tablet 0.4 mg SUBLINGUAL Q5M PRN 12/13/17 cholecalciferol (vitamin D3) 125 mcg (5,000 unit) tablet 5,000 unit PO DAILY 09/23/18 methocarbamol 500 mg tablet 500 mg PO TID PRN tab 09/23/18 metoprolol tartrate 25 mg tablet 12.5 mg PO BID #90 tab 05/21/19 Levothyroxine Sodium [Synthroid] 150 mcg PO MOWESA 01/16/20 Diazepam [Valium] 2 mg PO TID PRN PRN 4 Days #10 tablet 01/19/20 The following prescriptions were given: Diazepam [Valium] 2 mg PO TID PRN PRN 4 Days #10 tablet PRN Reason: Dizziness Transmission Status: Pending to [facility] [place] Primary Care Physician: Salbador Krueger DO [Primary Care Provider] - 1 Week Please follow up with your Primary Care Physician in: this Sunday Test Results: Test results from this visit will be discussed in further detail at your follow-up appointment, if applicable.
--- NOTE | 2020-01-21 08:22 | DS.PCM_ITS ---
Discharge Date and Diagnosis Date of Admission: 01/16/20 Date of Discharge: 01/19/20 - Primary Discharge Diagnosis #1 acute benign vertigo with an overlay of postconcussive syndrome #2 postconcussive syndrome #3 migraine cephalgia #4 essential hypertension #5 atherosclerotic heart disease - Secondary Discharge Diagnosis Chronic Problems (Last Reviewed 01/17/20 @ 00:[address] Fernando Norman MD) Presence of stent in coronary artery (Chronic ~08/12/15) PTCA/JONNIE to mid LAD 08/12/2015; Essential hypertension (Chronic) HLD (hyperlipidemia) (Chronic) Fatigue (Chronic) Atherosclerotic heart disease of [place] coronary artery without angina pectoris (Chronic) PTCA with JONNIE to mid LAD 08/12/2015; [facility]: 08/11/2015 Dyspnea (Chronic) Abnormal results of pulmonary function studies (Chronic) [place] (obstructive sleep apnea) (Chronic) Other chest pain (Chronic) Hypothyroidism (Chronic) CHF (congestive heart failure) (Chronic) Hospital Course and Treatment Operations: None Procedures: None Summary of Care Provided: The patient is a 74 year old F who was seen in the emergency room at [facility] after sustaining a fall with a laceration to her right temporal scalp area. Patient tripped and fell near her treadmill and struck the right side of her head-she denied loss of consciousness. Patient had a CT of the emergency room which showed no evidence of intracranial trauma, her laceration was sutured with 2 simple interrupted sutures. Patient attempted to ambulate and complain of dizziness and was unable to walk. She was placed in observation status on [facility] 3 and OT and PT saw the patient. Patient complained of a headache which was felt to be secondary to migraine and this was treated also. On 01/19/2020, patient was seen and examined: On examination she appeared in good health and spirits. Vital signs as documented. Skin warm and dry and without overt rashes. Neck without JVD. Lungs clear. Heart exam notable for regular rhythm, normal sounds and absence of murmurs, rubs or gallops. Abdomen unremarkable and without evidence of organomegaly, masses, or abdominal aortic enlargement. Extremities nonedematous. Neuro: Cranial nerves II through XII are grossly intact, no focal motor deficits were noted, sensation to light touch and pinprick is intact. Psych: Patient is alert and oriented x3, she does not erin ear anxious or depressed On 01/19/2020, patient was seen and examined and felt to be in stable condition for discharge home - Physical Exam Vitals/I&O's: Vital Signs Temp Pulse Resp BP Pulse Ox 97.6 F L 85 16 119/69 98 01/19/20 15:24 01/19/20 15:24 01/19/20 15:24 01/19/20 15:24 01/19/20 15:24 Oxygen Delivery Method Room Air Weight: 57.9 kg Body Mass Index (BMI) 23.3 Discharge Activity: Return to Normal Activity Weight Bearing Status: Full weight bearing Home Medications: Medications to take at Discharge Aspirin [Aspirin, Baby] 162 mg PO DAILY@0800 08/05/15 Calcium Carbonate/Vitamin D3 [Calcium 600 + D Tablet] 3 ea PO BID 08/05/15 Clopidogrel Bisulfate [Plavix] 75 mg PO DAILY@0800 #30 tab 08/25/15 Atorvastatin Calcium [Lipitor] 20 mg PO QHS 04/04/16 Biotin/Keratin [Biotin Plus Keratin Tablet] 2 ea PO QHS 04/04/16 Carbamazepine [Tegretol] 200 mg PO BIDCM 04/04/16 levothyroxine 75 mcg tablet 75 mcg PO SUTUTHFR tab 12/13/17 nitroglycerin 0.4 mg sublingual tablet 0.4 mg SUBLINGUAL Q5M PRN 12/13/17 cholecalciferol (vitamin D3) 125 mcg (5,000 unit) tablet 5,000 unit PO DAILY 09/23/18 methocarbamol 500 mg tablet 500 mg PO TID PRN tab 09/23/18 metoprolol tartrate 25 mg tablet 12.5 mg PO BID #90 tab 05/21/19 Levothyroxine Sodium [Synthroid] 150 mcg PO MOWESA 01/16/20 Diazepam [Valium] 2 mg PO TID PRN PRN 4 Days #10 tab 01/19/20 Following Prescrptions Were Given to Patient: Diazepam [Valium] 2 mg PO TID PRN PRN 4 Days #10 tab PRN Reason: Dizziness Transmission Status: Received by [id number] [place] Primary Care Physician: Salbador Krueger DO [Primary Care Provider] - 1 Week Please follow up with your Primary Care Physician in: this Sunday Patient Instructions: Sprain, Ankle, with X-Ray, CONCUSSION w/ Wake Up, Hip Contusion, LACERATION, Face (Suture or Tape) Disposition: Home Minutes spent on discharge:: 30 Patient Condition:: Stable Medical Necessity - Tobacco Use Smoking Status: Never smoker Meaningful Use Info Meaningful Use Diagnoses (Choose all that apply): None applicable Code Visit OBSV E&M: 35399 Observation care discharge
== END 2020-01-19 17:36 | disposition home or self-care (01) ==
LOC: ED 21:30 → MS3 22:12
PROVIDERS: Admitting Provider Hospitalist; Emergency Provider Emergency Medicine; PCP Student in an Organized Health Care Education/Training Program; Visit Provider Internal Medicine
DX: F07.81 Postconcussional syndrome (principal); S01.81XA Laceration without foreign body of other part of head, initial encounter; S93.401A Sprain of unspecified ligament of right ankle, initial encounter; S70.01XA Contusion of right hip, initial encounter; G43.909 Migraine, unspecified, not intractable, without status migrainosus; G47.33 Obstructive sleep apnea (adult) (pediatric); E03.9 Hypothyroidism, unspecified; G50.0 Trigeminal neuralgia; I11.0 Hypertensive heart disease with heart failure; E78.5 Hyperlipidemia, unspecified; I50.9 Heart failure, unspecified; I25.10 Atherosclerotic heart disease of native coronary artery without angina pectoris; I25.2 Old myocardial infarction; W01.0XXA Fall on same level from slipping, tripping and stumbling without subsequent striking against object, initial encounter; Y93.9 Activity, unspecified; Y92.009 Unspecified place in unspecified non-institutional (private) residence as the place of occurrence of the external cause; Z79.02 Long term (current) use of antithrombotics/antiplatelets; Z79.899 Other long term (current) drug therapy; Z79.82 Long term (current) use of aspirin; Z95.5 Presence of coronary angioplasty implant and graft
CPT/HCPCS: 12011; 70450; 73502; 73610; 96374; 97110; 97116; 97162; 97165; 97530; 97535; 99218; 99284; A4216; G0378

== ENCOUNTER 2020-12-11 17:32 | Emergency (ER) | payer MEDICARE, SELFPAY ==
[2020-10-15 11:21] VITALS: BMI 22.8
[2020-12-11 17:33] VITALS: BP 156/95; PULSE 84; RESP 16; TEMP 36.3; O2SAT 98; BMI 22.8
--- NOTE | 2020-12-11 17:48 | CT_ITS ---
STUDY: CT BRAIN WITHOUT CONTRAST REASON FOR EXAM: Female, 75 years old. FALL HITTING HEAD AND ON BLOOD THINNERS. Hx of thyroidectomy, heart stent and HTN RADIATION DOSAGE (If Supplied By Facility): CTDIvol = ( 44.99 ) mGy, DLP = ( 812.98 ) mGycm TECHNIQUE: Transaxial CT imaging of the brain was performed without administration of intravenous contrast material. Individualized dose optimization techniques were used for this CT. COMPARISON: 01/18/2020 FINDINGS: Normal soft tissue structures. Normal calvarium. Normal size ventricles and extra-axial spaces for the patient''s age. Normal white matter tracts of the cerebral hemispheres. Normal basal ganglia and thalami. Normal brainstem. There is mild cerebellar atrophy. There is no intracranial hemorrhage. There are no findings of an acute ischemic infarction. Normal visualized paranasal sinuses. CT/Brain/Head without Contrast IMPRESSION: No acute intracranial process. Electronically Signed: Fidelia Dawn MD at 18:26 EST Tel , Service support ,
--- NOTE | 2020-12-11 17:48 | CT_ITS ---
STUDY: CT CERVICAL SPINE WITHOUT CONTRAST REASON FOR EXAM: Female, 75 years old. FALL HITTING HEAD AND ON BLOOD THINNERS. Hx of thyroidectomy, heart stent and HTN RADIATION DOSAGE (If Supplied By Facility): CTDIvol = ( 11.79 ) mGy, DLP = ( 230.45 ) mGycm TECHNIQUE: High resolution transaxial imaging was performed without contrast material. Sagittal and coronal images were reconstructed. Individualized dose optimization techniques were used for this CT. COMPARISON: None FINDINGS: Normal craniovertebral junction. There are degenerative changes of the anterior atlantoaxial articulation. Normal odontoid process. There is straightening of the normal cervical lordosis. There is multilevel facet hypertrophy. C2-3: Normal endplates. Normal disc height and morphology. Normal central canal and intervertebral neuroforamina. C3-4: There is a posterior disc osteophyte associated with stenosis of the central canal and bilateral narrowing of the intervertebral neuroforamina. C4-5: There is a posterior disc osteophyte associated with stenosis of the central canal and bilateral narrowing of the intervertebral neuroforamina. C5-6: There is a posterior disc osteophyte associated with stenosis of the central canal and narrowing of the right intervertebral neuroforamina. C6-7: There is a posterior disc osteophyte associated with stenosis of the central canal and bilateral narrowing of the intervertebral neuroforamina. C7-T1: There is endplate spondylosis. Normal central canal and intervertebral neuroforamina. There are vascular calcifications. CT/Spine Cervical without Contras IMPRESSION: Multilevel degenerative changes, as described above. Atherosclerosis. Electronically Signed: Fidleia Dawn MD at 18:41 EST Tel , Service support ,
--- NOTE | 2020-12-11 17:50 | EKG12_ITS ---
Test Reason : FALL Blood Pressure : / mmHG Vent. Rate : 078 BPM Atrial Rate : 078 BPM P-R Int : 164 ms QRS Dur : 070 ms QT Int : 376 ms P-R-T Axes : 078 -51 052 degrees QTc Int : 428 ms Normal sinus rhythm Possible Left atrial enlargement Left axis deviation Abnormal ECG Confirmed by YUNIEL VALLES, SHAD ([id number]), staff editor ULICSE CARDENAS ([id number]) on 12/15/2020 6:51:00 AM Referred By: FRANCSICO JAVIER Confirmed By:SHAD BRICE MD
--- NOTE | 2020-12-11 17:50 | ED.VIS.GEN ---
History of Present Illness Chief Complaint: Fall Informant: Patient Onset: Today Current Severity: Moderate Maximum Severity: Moderate Narrative: Patient present secondary to headache and chest pain after a fall earlier today. Patient presents approximately 7 hours after a mechanical fall at home. She states she missed a step going from the house into the garage and fell onto the cement garage floor. She struck her anterior chest on the car that was parked in the garage. She did not lose consciousness. She is currently complaining of headache as well as anterior chest pain with mild shortness of breath. She does complain of some left ankle pain as well. Patient is currently on Plavix. She did take ibuprofen approximately 2 hours ago. - Past Medical History (1) CHF (congestive heart failure) Status: Chronic (2) Essential hypertension Status: Chronic (3) HLD (hyperlipidemia) Status: Chronic (4) Hypothyroidism Status: Chronic (5) Presence of stent in coronary artery Status: Chronic Comment: PTCA/JONNIE to mid LAD 08/12/2015; Past Medical History - Allergies and Home Meds Allergies/Adverse Reactions: Allergies diphtheria,pertussis (acellular),te [From Adacel(Tdap Adolesn/Adult)(PF)] Allergy (Verified 12/11/20 17:33) Hives Sulfa (Sulfonamide Antibiotics) Allergy (Verified 12/11/20 17:33) Rash Primary Care Physician: Salbador Krueger DO [Primary Care Provider] - Prior records reviewed: Yes Surgical History: - - partial thyroidectemy,left femur fracture with alireza placement, back operation due to sciatic nerve problems Lives: Spouse/ Significant Other Smoking Status: Never smoker - Family History Maternal Family History: Family History (Last Reviewed 10/15/20 @ 11:24 by Jamee Tolbert) Father Cancer Mother Breast cancer Family History: Reports: - - mother had a mastectemy, age 73 alzheimers, tia Paternal Family History: Family History (Last Reviewed 10/15/20 @ 11:24 by Jamee Tolbert) Father Cancer Mother Breast cancer Family History: Reports: - - father of luekemia, lot of other cancer colon and lung Sibling Family History: Family History (Last Reviewed 10/15/20 @ 11:24 by Jamee Tolbert) Father Cancer Mother Breast cancer Family History: Reports: - - brother gets migraines Offspring Family History: Family History (Last Reviewed 10/15/20 @ 11:24 by Jamee Tolbert) Father Cancer Mother Breast cancer Family History: Reports: - - 2 children Review of Systems General: Denies: Chills, Fever Eyes: Denies: Visual changes - bilaterally ENT: Denies: Bilateral ear pain Cardiovascular: Reports: Chest pain. Denies: Palpitations, Heart racing Respiratory: Reports: Dyspnea. Denies: Cough, Sputum Gastrointestinal: Denies: Abdominal pain, Nausea, Vomiting, Diarrhea Musculoskeletal: Reports: Extremity Pain Skin: Reports: Abrasions Neurological: Reports: Headache. Denies: Parasthesia, Numbness Hematologic: Denies: Easy bruising, Easy bleeding Allergy: Denies: Uticaria Physical Exam Vital Signs/Narrative: Vital Signs Temp Pulse Resp BP Pulse Ox 12/11/20 17:33 97.3 F L 84 16 156/95 H 98 Inital Vital Signs reviewed: Yes General: Well nourished, Well developed Head: Normocephalic Eyes: Perrl, EOMI ENT: Moist mucous membranes Neck: Supple, - - No C-spine tenderness. Cardiovascular: Regular rate, Regular rhythm Respiratory: No distress, CTA bilaterally, Chest tenderness - Anterior chest wall tenderness. No crepitus. Abdomen: Soft, Nontender Extremities: - - Mild edema to the left lateral ankle and left proximal foot. Strong distal pulses and normal cap refill. Abrasions noted to the lateral left ankle. Neurological: Alert, Oriented x3, Normal Strength, Normal Sensation Psychological: Normal affect Diagnostic/Tx/Re-eval Impressions Brain CT 12/11/20 17:48 IMPRESSION: No acute intracranial process. Electronically Signed: Fidelia Dawn MD at 18:26 EST Tel , Service support , Cervical Spine CT 12/11/20 17:48 IMPRESSION: Multilevel degenerative changes, as described above. Atherosclerosis. Electronically Signed: Fidelia Dawn MD at 18:41 EST Tel , Service support , Ankle X-Ray 12/11/20 18:10 IMPRESSION: Normal x-ray examination of the ankle. Electronically Signed: Rai Pruitt MD at 18:42 EST , Service support , Chest X-Ray 12/11/20 18:10 IMPRESSION: No acute chest disease. Electronically Signed: Rai Pruitt MD at 18:45 EST , Service support , Foot X-Ray 12/11/20 18:10 IMPRESSION: No acute fracture or dislocation. Electronically Signed: Rai Pruitt MD at 18:46 EST , Service support , 12/11/20 17:48 CT Cervical [Spine Cervical without Contras] [CT] Stat CT Head [Brain/Head without Contrast] [CT] Stat 12/11/20 18:10 Ankle min 3 Views [RAD] Stat Chest PA and Lateral [RAD] Stat Foot min 3 Views [RAD] Stat - EKG Initial EKG Interpretation: Sinus Rhythm - Sinus at 78 with no acute ischemia. - Medical Decision Making 2 view chest x-ray per my interpretation reveals significant scoliosis with chronic changes. Left foot and ankle x-rays per my review reveal no acute fracture. Patient underwent x-rays as well as CT scan of the head and neck. No acute findings are noted. Patient is reassured with this. She is advised use Tylenol and ibuprofen to help with pain. ED Disposition - Plan for ED Patient: Disposition: Home or Assisted Living Diagnosis: Fall, Chest wall contusion, Closed head injury, Left ankle sprain Instructions: ED Mechanical Fall, ED Ankle Sprain (Adult), ED Head Injury (Adult), ED Chest Wall Contusion Referrals: Salbador Krueger DO [Primary Care Provider] - 1 Week if not improving
--- NOTE | 2020-12-11 18:10 | RAD_ITS ---
STUDY: X-RAY - LEFT ANKLE REASON FOR EXAM: Female, 75 years old. FALL. LATERAL MALLEOLAR PAIN/SWELLING TECHNIQUE: 3 view(s) of the ankle. COMPARISON: None. FINDINGS: Normal visualized distal tibia and fibula. Normal medial and lateral malleoli. Normal tibiotalar articulation and ankle mortise. Normal visualized talus and calcaneus. The visualized subtalar, talonavicular, calcaneocuboid and tarsal articulations are normal. There is no demonstrated fracture. The soft tissue structures are unremarkable. RAD/Ankle min 3 Views IMPRESSION: Normal x-ray examination of the ankle. Electronically Signed: Rai Pruitt MD at 18:42 EST , Service support ,
--- NOTE | 2020-12-11 18:10 | RAD_ITS ---
STUDY: X-RAY - LEFT FOOT CLINICAL: Female, 75 years old. LATERAL ANKLE/FOOT PAIN AFTER FALL TECHNIQUE: 3 view(s) of the foot. COMPARISON: None. FINDINGS: Normal talus, calcaneus, and tarsal bones. Normal visualized subtalar, talonavicular, calcaneocuboid, tarsal and tarsometatarsal articulations. Normal metatarsi. Diffuse hyperextension deformities of all of the metatarsophalangeal joints. Normal tibial and fibular sesamoid bones. Normal interphalangeal joint of the great toe. Normal phalanges of the great toe. Normal second through fifth metatarsophalangeal joints. Normal phalanges of the lesser toes. The soft tissue structures are unremarkable. There is no demonstrated fracture. RAD/Foot min 3 Views IMPRESSION: No acute fracture or dislocation. Electronically Signed: Rai Pruitt MD at 18:46 EST , Service support ,
--- NOTE | 2020-12-11 18:10 | RAD_ITS ---
STUDY: X-RAY CHEST REASON FOR EXAM: Female, 75 years old. PAIN ALL ACROSS CHEST AT MID STERNUM LEVEL AFTER FALLING ONTO HER CHEST TECHNIQUE: Frontal and lateral views of the chest. COMPARISON: 08/08/2017. FINDINGS: Normal lung volumes. No infiltrates. No effusions. Normal heart size. Stable moderate to severe dextroconvex scoliosis. No gross fractures. RAD/Chest PA and Lateral IMPRESSION: No acute chest disease. Electronically Signed: Rai Pruitt MD at 18:45 EST , Service support ,
--- NOTE | 2020-12-11 19:09 | ED.RN ---
DISCHARGE INSTRUCTIONS GIVEN TO AND REVIEWED WITH PATIENT, PATIENT DENIES QUESTIONS OR CONCERNS AND VOICES UNDERSTANDING OF DISCHARGE INSTRUCTIONS. DAUGHTER MADE AWARE PATIENT IS READY TO BE DISCHARGED HOME.
== END 2020-12-11 19:09 | disposition home or self-care (01) ==
LOC: ED 19:07
PROVIDERS: Emergency Provider Emergency Medicine; PCP Student in an Organized Health Care Education/Training Program
DX: S09.90XA Unspecified injury of head, initial encounter (principal); S20.219A Contusion of unspecified front wall of thorax, initial encounter; S93.402A Sprain of unspecified ligament of left ankle, initial encounter; W19.XXXA Unspecified fall, initial encounter; E78.5 Hyperlipidemia, unspecified; E89.0 Postprocedural hypothyroidism; I11.0 Hypertensive heart disease with heart failure; I50.9 Heart failure, unspecified; Z79.02 Long term (current) use of antithrombotics/antiplatelets; Z80.1 Family history of malignant neoplasm of trachea, bronchus and lung; Z80.3 Family history of malignant neoplasm of breast; Z88.2 Allergy status to sulfonamides; Z95.5 Presence of coronary angioplasty implant and graft
CPT/HCPCS: 70450; 71046; 72125; 73610; 73630; 93005; 99282

== ENCOUNTER 2022-02-27 14:33 | Outpatient (CLI) | payer MEDICARE, SELFPAY ==
[2022-02-27 16:24] LABS: Absolute Lymphocyte Count 0.85 X10^3/uL (0.83-4.51); Absolute Neutrophil Count 3.2 X10^3/uL (2.0-7.7); Basophil# 0.02 X10^3/uL; Basophil% 0.4 % (0-1); Eosinophil# 0.03 X10^3/uL; Eosinophils% 0.7 % (0-5); Hematocrit 37.3 % (37-47); Hemoglobin 11.9 g/dL (12.0-15.0); Lymphocyte # 0.85 X10^3/ul (0.83-4.51); Lymphocyte % 18.7 % (19-41); Mean Corp Hgb Conc 31.9 g/dL (32-36); Mean Corpuscular Hgb 33.1 pg (27.0-32.0); Mean Corpuscular Volume 103.9 fL (81-99); Mean Platelet Vol. 9.5 fl (6.2-12.0); Monocyte# 0.45 X10^3/uL; Monocyte% 9.9 % (0-10); NRBC Flagged by Analyzer 0 % (0-5); Neutrophil # 3.19 X10^3/uL (2.7-7.7); Neutrophil % 70.1 % (47-70); Platelet Count 273 K/mm3 (150-450); RBC Distribution Width CV 11.8 % (11.6-14.6); RBC Distribution Width SD 45.8 fl (35.1-43.9); Red Blood Count 3.59 M/mm3 (4.2-5.4); White Blood Count 4.6 K/mm3 (4.4-11.0)
== END 2022-02-27 23:59 | disposition home or self-care (01) ==
LOC: LAB 14:34
PROVIDERS: PCP Student in an Organized Health Care Education/Training Program; Visit Provider Internal Medicine Cardiovascular Disease
DX: I50.32 Chronic diastolic (congestive) heart failure (principal)
CPT/HCPCS: 36415; 85025

== ENCOUNTER → 2022-03-17 | Outpatient (CLI) | payer MEDICARE, SELFPAY ==
--- NOTE | 2022-03-17 08:09 | STRESSREP_ITS ---
Stress Test Report Date: 03-17-2022 Procedure: Pharmacologic stress nuclear imaging study Indications: Chest pain; CAD; status post PCI Consent: Per the patient Procedure: The patient underwent pharmacologic (Regadenoson 0.4mg ) evaluation with a peak heart rate of 105 beats per minute (72%predicted maximal heart rate) and a peak blood pressure of 148/92 mmHg. The baseline ECG demonstrated normal sinus rhythm. The peak pharmacologic ECG demonstrated no obvious ECG changes. There were no cardiac dysrhythmias pretest, during pharmacologic infusion, or recovery. There was no complaint of chest discomfort during pharmacologic infusion or recovery. The examination was discontinued secondary to completion of protocol. Impression: 1. Pharmacologic (Regadenoson) evaluation 2. Peak pharmacologic ECG with no obvious ECG changes. 3. There were no cardiac dysrhythmias pretest, during pharmacologic infusion, or recovery. 4. Nuclear images pending Myocardial perfusion imaging study: Technique: The patient was injected with 10.9 millicuries of technetium 99m Cardiolite and subsequently rest SPECT Cardiolite nuclear imaging was obtained in the horizontal long, vertical long, and short axis views. The patient underwent pharmacologic (Regadenoson) evaluation with a peak heart rate of 105 beats per minute (72% percent predicted maximal heart rate) and a peak blood pressure of 148/92 mmHg. The patient was injected with 32.9 millicuries of technetium 99m Cardiolite and subsequently stress SPECT Cardiolite nuclear imaging was obtained in the horizontal long, vertical long, and short axis views. A gated Cardiolite study at peak stress was obtained. Interpretation: Rest and stress SPECT Cardiolite nuclear imaging status post realignment, normalization, and attenuation correction demonstrate relative uniform tracer uptake and myocardial perfusion appearing within normal limits. There is end systolic thickening and brightening. The gated Cardiolite study demonstrates myocardial thickening and inward wall motion. The reported LVEF is 82%. Impression: 1. Rest and stress SPECT Cardiolite nuclear imaging demonstrate relative u niform tracer uptake and myocardial perfusion appearing within normal limits. 2. The gated Cardiolite study reports an LVEF of 82%. This note was generated with [employer] software. It may contain incorrect words, spelling, and punctuation that were not noted in checking the note before signing.
--- NOTE | 2022-03-17 08:55 | ECHOD_ITS ---
Reason For Study: CHEST PAIN Procedure This was a 2D Doppler, Color Flow transthoracic echocardiogram. The exam was of adequate technical quality. Exam performed in department. Left Ventricle Normal LV size. Sigmoid septum. Left ventricular systolic function is normal. The estimated ejection fraction is 65 %. Diastolic function is indeterminate. No regional wall motion abnormalities noted. Right Ventricle Normal RV size. Normal systolic function. Atria Normal left atrium. Normal right atrium. No doppler evidence for ASD. Mitral Valve There is no mitral annular calcification. Normal mitral valve. Trivial mitral valve insufficiency. Tricuspid Valve Normal tricuspid valve. Trivial tricuspid valve insufficiency. Right ventricular systolic pressure estimated to be 35 mmHg. Aortic Valve Trisinus/trileaflet aortic valve. Normal aortic valve. Pulmonic Valve Normal pulmonic valve. Trivial pulmonic valve insufficiency. Great Vessels Normal sized aortic root. Pericardium/Pleural No pericardial effusion. MMode/2D Measurements & Calculations LVIDd: 3.7 cm IVSd: 1.2 cm Ao root diam: 3.3 cm LVIDs: 1.9 cm LVPWd: 0.73 cm RVDd: 2.5 cm FS: 49.3 % LVAd ap4: 19.3 cm2 LVAd ap2: 17.4 cm2 SV(MOD-sp4): 32.5 ml LVLd ap4: 6.8 cm LVLd ap2: 6.2 cm EDV(MOD-sp4): 45.5 ml EDV(MOD-sp2): 39.8 ml EDV(sp4-el): 46.4 ml EDV(sp2-el): 41.3 ml LVAs ap4: 8.7 cm2 LVAs ap2: 7.8 cm2 LVLs ap4: 4.9 cm LVLs ap2: 4.6 cm ESV(MOD-sp4): 13.1 ml ESV(MOD-sp2): 11.6 ml ESV(sp4-el): 13.1 ml ESV(sp2-el): 11.2 ml EF(MOD-sp4): 71.3 % EF(MOD-sp2): 70.9 % EF(sp4-el): 71.7 % SV(MOD-sp2): 28.2 ml SV(sp4-el): 33.3 ml LA dimension(2D): 2.4 cm RA A4 area: 7.8 cm2 Doppler Measurements & Calculations MV E max konrad: 66.4 cm/sec Lat Peak E' Konrad: 5.6 cm/sec Med Peak E' Konrad: 5.9 cm/sec E/E' lat: 12.0 E/E' med: 11.2 Ao V2 max: 91.5 cm/sec LV V1 max: 78.2 cm/sec PA V2 max: 97.1 cm/sec Ao max P.3 mmHg LV V1 max P.4 mmHg TR max konrad: 281.5 cm/sec TR max P.7 mmHg ECHO/Echo Complete Interpretation Summary Left ventricular systolic function is normal. The estimated ejection fraction is 65 %. Sigmoid septum. Trivial mitral valve insufficiency. Trivial tricuspid valve insufficiency. Trivial pulmonic valve insufficiency. Right ventricular systolic pressure estimated to be 35 mmHg. Diastolic function is indeterminate. Ordering Physician: Virgilio Arenas Referring Physician: GIL DOUGLAS Performed By: Bette Martinez RCS
--- NOTE | 2022-03-17 08:55 | ART_ITS ---
Reason For Study: Leg pain Procedure A bilateral lower extremity continuous wave Doppler with analog waveform analysis,segmental pressures,and ankle brachial indexes without exercise. Left Segmental Pressures Left brachial= 174mmHg. Left posterior tibial artery = 185mmHg. Left dorsalis pedis artery = 169mmHg. Left digit = 134 mmHg. The left dorsalis pedis waveforms are triphasic. The left posterior tibial artery waveforms are triphasic. Right Segmental Pressures Right brachial= 164mmHg. Right posterior tibial artery = 197mmHg. Right dorsalis pedis artery = 191mmHg. Right digit = 129 mmHg. The right dorsalis pedis waveforms are triphasic. The right posterior tibial artery waveforms are triphasic. Indices The right ankle brachial index by the dorsalis pedis is 1.10. The right ankle brachial index by the posterior tibial artery is 1.13. The right digital-brachial index is 0.74. The left ankle brachial index by the dorsalis pedis is 0.97. The left ankle brachial index by the posterior tibial artery is 1.06. The left digital-brachial index is 0.77. VL/Lower Ext Art Exam w/o Exercis Interpretation Summary Right lower extremity normal PT and DP ankle-brachial index at rest at 1.13 and 1.10 respectively with triphasic Doppler waveforms. Borderline abnormal right digital brachial index of 0.74 possibly suggestive of temperature effect or small vessel disease. Normal left lower extremity PT and DP ankle-brachial index at rest at 1.06 and 0.97 respectively with triphasic Doppler waveforms Borderline left digital brachial index of 0.77 possibly consistent with tempera ture effect or distal small vessel disease. Ordering Physician: Virgilio Arenas Referring Physician: Salbador Krueger Performed By: Stefany Fair RVT
== END | disposition home or self-care (01) ==
LOC: CVS 06:34
PROVIDERS: PCP Student in an Organized Health Care Education/Training Program; Visit Provider Internal Medicine Cardiovascular Disease
DX: I11.0 Hypertensive heart disease with heart failure (principal); I50.32 Chronic diastolic (congestive) heart failure; I73.9 Peripheral vascular disease, unspecified; E78.5 Hyperlipidemia, unspecified; I25.10 Atherosclerotic heart disease of native coronary artery without angina pectoris; R06.00 Dyspnea, unspecified; R07.89 Other chest pain; M79.606 Pain in leg, unspecified; Z95.5 Presence of coronary angioplasty implant and graft
CPT/HCPCS: 78452; 93017; 93306; 93923; A9500; A4216; J2785

== ENCOUNTER 2022-09-19 09:19 | Emergency (ER) | payer MEDICARE, SELFPAY ==
[2022-09-19 09:21] VITALS: BP 160/93; PULSE 105; RESP 17; TEMP 36.2; O2SAT 96; BMI 22.0
--- NOTE | 2022-09-19 09:53 | EDS_ITS ---
HPI History of Present Illness Chief Complaint: Headache Informant: patient Onset/Context/Timing Onset: Days (3 days) Context: Gradual Onset Narrative Narrative: Patient presents secondary to headache with cough and congestion. She reports a headache across the frontal area as well as across the base of her head. No recent head injuries. She is had minor head congestion. She also reports a cough with chest congestion. Some mild intermittent nausea. No fever has been noted. [facility] Medical History (Updated 09/19/22 @ 11:[address] Felisa Chow MD) Abnormal cardiac enzyme level Abnormal results of pulmonary function studies Atherosclerotic heart disease of [place] coronary artery without angina pectoris CHF (congestive heart failure) Dyspnea Fatigue Headache HLD (hyperlipidemia) HTN (hypertension) Hypothyroidism Leg pain [place] (obstructive sleep apnea) Other chest pain Other disorders of arteries, arterioles and capillaries in diseases classified elsewhere Presence of stent in coronary artery (~08/12/15) Scoliosis Subendocardial myocardial infarction TIA (transient ischemic attack) Trigeminal neuralgia Home Medications aspirin 81 mg chewable tablet 162 mg PO DAILY@0800 heart health 08/05/15 [History Last Taken 01/16/20] clopidogrel 75 mg tablet 75 mg PO DAILY@0800 #30 tabs 08/25/15 [Rx Last Taken 01/16/20] atorvastatin 20 mg tablet 20 mg PO QHS cholesterol 04/04/16 [History Last Taken 01/15/20] carbamazepine 200 mg tablet 200 mg PO BIDCM nerve pain 04/04/16 [History Last Taken 01/16/20] cholecalciferol (vitamin D3) 125 mcg (5,000 unit) tablet 5,000 unit PO DAILY supplement 09/23/18 [History Last Taken 01/16/20] metoprolol tartrate 25 mg tablet 12.5 mg PO BID #90 tabs 05/04/20 [Rx Last Taken Unknown] etodolac 200 mg capsule 200 mg PO BID PRN arthritis 04/14/21 [History Last Taken Unknown] nitroglycerin 0.4 mg sublingual tablet 0.4 mg sublingual Q5M PRN CHEST PAIN #25 tabs 02/27/22 [Rx Last Taken Unknown] biotin 3,000 mcg-silicon dioxide 100 [id number] 50 mg tablet ER 1 tab PO BID 09/05/22 [History Last Taken Unknown] calcium citrate 315 mg-vitamin D3 5 mcg (200 unit) tablet (Calcium Citrate + D) 1 tab PO BID 09/05/22 [History Last Taken Unknown] levothyroxine 75 mcg tablet 75 mcg PO TUTHSA thyroid 09/05/22 [History Last Taken Unknown] levothyroxine 75 mcg tablet 150 mcg PO SUMOWEFR 09/05/22 [History Last Taken Unknown] methocarbamol 500 mg tablet 500 mg PO TID PRN muscle relax 09/05/22 [History Last Taken Unknown] Allergy/AdvReac Type Severity Reaction Status Date / Time diphtheria,pertussis Allergy Hives Verified 09/19/22 09:20 (acellular),te [From Adacel(Tdap Adolesn/Adult)(PF)] Sulfa (Sulfonamide Allergy Rash Verified 09/19/22 09:20 Antibiotics) Family History Father Cancer Mother Breast cancer Surgical History H/O partial thyroidectomy (~11/16/11) History of left heart catheterization (LHC) History of total hysterectomy Presence of coronary angioplasty implant and graft (~08/12/15) Social History Smoking Status: Never smoker alcohol intake: never substance use type: does not use caffeine: Yes Type: carbonated beverages, coffee and tea what type of physical activity do you participate in: other details: PT frequency: 1-2 times per week duration: 30-45 minutes/day seatbelt use: always do you feel safe at home: Yes ROS ROS ED Constitutional Constitutional ED: Denies chills or fever(s) Eyes Eyes: Denies change in vision or discharge from eye(s) ENT ENT ED: Reports other Details: Mild congestion ; Denies discharge from eye(s), rhinorrhea or sore throat Cardiovascular Cardiovascular: Denies chest pain or palpitations Respiratory/Chest Respiratory/Chest: Reports cough; Denies dyspnea Gastrointestinal Gastrointestinal: Reports nausea; Denies abdominal pain, diarrhea or vomiting Genitourinary Genitourinary ED: Denies difficulty urinating or dysuria Musculoskeletal Musculoskeletal: Reports myalgias; Denies back pain or extremity pain Integumentary Denies Abrasions or rash Neurologic Neurologic: Reports headache(s); Denies weakness Psychiatric Psychiatric: Denies anxiety or depression Allergic/Immunologic Allergic/Immunologic ED: Denies lip swelling or urticaria EXAM Physical Exam Const Vital Signs: 09/19/22 09:21 09/19/22 10:01 09/19/22 11:28 Temperature 97.2 F L 97.2 F L 98.0 F Temperature Source Temporal Temporal Oral Pulse Rate 105 H 105 H 95 Respiratory Rate 17 16 18 Blood Pressure 160/93 H 160/93 H 151/92 H Blood Pressure Mean 115 115 111 Pulse Ox 96 96 95 Oxygen Delivery Method Room Air Room Air 09/19/22 11:38 Temperature 98.0 F Temperature Source Oral Pulse Rate 95 Respiratory Rate 18 Blood Pressure 151/92 H Blood Pressure Mean 111 Pulse Ox Oxygen Delivery Method Room Air Positive well nourished and well developed General Appearance ED: well developed HEENT Reports normocephalic and head/scalp atraumatic Eyes PERRL and EOMs intact bilaterally Neck supple Chest Wall inspection of chest normal and palpation of chest normal Resp normal respiratory effort and clear to auscultation bilaterally Cardio regular rate and regular rhythm GI normal to inspection, nondistended, normoactive bowel sounds Palpation: soft Extremity normal to inspection Neuro oriented x3 and no sensory deficits noted Sensorium / Orientation: alert Motor Exam: strength 5/5 throughout Psych mental status grossly normal Skin no rashes or lesions noted MDM MDM MDM Narrative Medical decision making narrative: Patient given small dose of Toradol, Reglan, Benadryl, IV fluids. Lab work obtained along with a COVID test. Lab Data Attestation: I reviewed the patient's lab results. Labs: Laboratory Results - last 24 hr 09/19/22 09/19/22 10:00 10:00 WBC 4.8 RBC 4.18 L Hgb 13.8 Hct 42.9 MCV 102.6 H MCH 33.0 H MCHC 32.2 RDW Std Deviation 42.5 RDW Coeff of Oliverio 11.2 L Plt Count 141 L MPV 9.7 Immature Gran % (Auto) 0.200 Neut % (Auto) 74.7 H Lymph % (Auto) 7.6 L Stark % (Auto) 17.1 H Eos % (Auto) 0.0 Baso % (Auto) 0.4 Absolute Neuts (auto) 3.6 Absolute Lymphs (auto) 0.37 L Nucleated RBC % 0 Platelet Estimate ADEQUATE Macrocytosis 1+ Sodium 135 L Potassium 4.2 Chloride 99 Carbon Dioxide 29.0 Anion Gap 7 BUN 12 Creatinine 0.80 Estim Creat Clear Calc 45.14 Est GFR (MDRD) Af Amer 89 Est GFR (MDRD) Non-Af 74 BUN/Creatinine Ratio 14.9 Glucose 101 Calcium 8.9 Radiography Diagnostic Testing: Clinical Impression(s) from Imaging Studies Chest X-Ray 09/19/22 10:10 IMPRESSION: Hyperinflation. Dextroscoliosis. Electronically Signed: Chadwick Simms MD at 10:38 EDT , Treatment and Re-Evaluation Narrative: Rapid COVID test is positive. Blood work is unremarkable. Chest x-ray reveals no focal infiltrate per my interpretation. Test results are discussed with patient at bedside. We did advise her that this is all supportive care at this point. I will give her material to review and return instructions have been given. Discharge Plan Triage Chief Complaint: Headache ED Provider: Felisa Chow Dx/Rx/DC Orders Clinical Impression: COVID-19, Headache Instructions: Coronavirus Disease 2019 (COVID-19): Overview, Coronavirus Disease 2019 (COVID-19): Caring for Yourself or Others Prescriptions: No Action levothyroxine 75 mcg tablet 75 mcg PO TUTHSA cholecalciferol (vitamin D3) 5,000 unit tablet 5,000 unit tablet 5,000 unit PO DAILY etodolac 200 mg capsule 200 mg PO BID PRN (Reason: arthritis) nitroglycerin 0.4 mg tablet, sublingual 0.4 mg SUBLINGUAL Q5M PRN (Reason: CHEST PAIN) Qty: 25 2RF calcium citrate-vitamin D3 [Calcium Citrate + D] 315 mg-5 mcg (200 unit) tablet 1 tab PO BID biotin-silicon [id number] 3,000 mcg -100 mg-50 mg tablet extended release 1 tab PO BID levothyroxine 75 mcg tablet 150 mcg PO SUMOWEFR methocarbamol 500 mg tablet 500 mg PO TID PRN (Reason: muscle relax) aspirin 81 MG tablet,chewable 162 mg PO DAILY@0800 Label Comments: heart health clopidogrel 75 MG tablet 75 mg PO DAILY@0800 Qty: 30 0RF atorvastatin 20 MG tablet 20 mg PO QHS Label Comments: CHOLESTEROL LOWERING carbamazepine 200 MG tablet 200 mg PO BIDCM metoprolol tartrate 25 mg tablet 12.5 mg PO BID Qty: 90 3RF Primary Care Provider: Salbador Krueger Referrals: Salbador Krueger DO [Primary Care Provider] - 1-2 Weeks Disposition Disposition: Home, Self Care
[2022-09-19 10:01] VITALS: BP 160/93; PULSE 105; RESP 16; TEMP 36.2; O2SAT 96
--- NOTE | 2022-09-19 10:10 | RAD_ITS ---
STUDY: X-RAY CHEST REASON FOR EXAM: Female, 77 years old. Headaches. Cough. TECHNIQUE: Single AP portable view of the chest. COMPARISON: Comparison is made with prior study dated 12/11/2020. FINDINGS: Hyperinflation. There is no demonstrated pleural abnormality. Normal size heart. Normal mediastinum and ciarra. Normal visualized pulmonary arteries. There is atherosclerotic calcification of the aortic arch with tortuosity. There is a dextroscoliosis of the thoracic spine. Normal visualized ribs, clavicles, and shoulders. There is no demonstrated abnormality of the visualized soft tissue structures of the upper abdomen. RAD/Chest 1 View (Portable) IMPRESSION: Hyperinflation. Dextroscoliosis. Electronically Signed: Chadwick Simms MD at 10:38 EDT ,
[2022-09-19 10:15] LABS: Absolute Lymphocyte Count 0.37 X10^3/uL (0.83-4.51); Absolute Neutrophil Count 3.6 X10^3/uL (2.0-7.7); Basophil# 0.02 X10^3/uL; Basophil% 0.4 % (0-1); Hematocrit 42.9 % (37-47); Hemoglobin 13.8 g/dL (12.0-15.0); Lymphocyte # 0.37 X10^3/ul (0.83-4.51); Lymphocyte % 7.6 % (19-41); Mean Corp Hgb Conc 32.2 g/dL (32-36); Mean Corpuscular Volume 102.6 fL (81-99); Mean Platelet Vol. 9.7 fl (6.2-12.0); Monocyte# 0.83 X10^3/uL; Monocyte% 17.1 % (0-10); NRBC Flagged by Analyzer 0 % (0-5); Neutrophil # 3.61 X10^3/uL (2.7-7.7); Neutrophil % 74.7 % (47-70); POSITIVE DIFFERENTIAL YES; Platelet Count 141 K/mm3 (150-450); RBC Distribution Width CV 11.2 % (11.6-14.6); RBC Distribution Width SD 42.5 fl (35.1-43.9); Red Blood Count 4.18 M/mm3 (4.2-5.4); White Blood Count 4.8 K/mm3 (4.4-11.0)
[2022-09-19 10:18] LABS: Differential Indicated SCAN CRITERIA MET
[2022-09-19 10:27] LABS: BUN 12 mg/dL (7-18); Estimated Creatinine Clearance 45.14 ml/min; Glucose 101 mg/dL (74-106)
[2022-09-19 10:28] LABS: Anion Gap 7 (5-15); BUN/Creat Ratio 14.9 RATIO (10-20); Calcium,Total 8.9 mg/dL (8.5-10.1); Chloride 99 mmol/L (98-107); EST Glomerular Filtration Rate 74 mL/min (>60); Est Glom Filt Rate - Afr Amer 89 mL/min (>60); Potassium 4.2 mmol/L (3.5-5.1); Sodium Level 135 mmol/L (136-145)
[2022-09-19] MEDS: Metoclopramide 10 MG/2 ML Vial 5 MG IV (10:47)
[2022-09-19] MEDS: DiphenhydrAMINE 50 MG/ML Syringe 12.5 MG IV (10:47)
[2022-09-19] MEDS: Ketorolac 15 MG/ML Vial IV (10:47)
[2022-09-19 11:21] LABS: Macrocytosis 1+; Platelet Estimate ADEQUATE (ADEQ)
[2022-09-19 11:28] VITALS: BP 151/92; PULSE 95; RESP 18; TEMP 36.7; O2SAT 95
[2022-09-19 11:38] VITALS: BP 151/92; PULSE 95; RESP 18; TEMP 36.7
== END 2022-09-19 12:16 | disposition home or self-care (01) ==
PROVIDERS: Emergency Provider Emergency Medicine; PCP Student in an Organized Health Care Education/Training Program; Visit Provider Emergency Medicine
DX: U07.1 COVID-19 (principal); I50.9 Heart failure, unspecified; I11.0 Hypertensive heart disease with heart failure; E78.5 Hyperlipidemia, unspecified; I25.10 Atherosclerotic heart disease of native coronary artery without angina pectoris; G47.33 Obstructive sleep apnea (adult) (pediatric); Z86.73 Personal history of transient ischemic attack (TIA), and cerebral infarction without residual deficits; Z95.5 Presence of coronary angioplasty implant and graft
CPT/HCPCS: 71045; 80048; 85025; 87811; 96361; 96374; 96375; 99283; J7040; A4216

== ENCOUNTER → 2023-08-31 | Outpatient (CLI) | payer MEDICARE, SELFPAY ==
--- NOTE | 2023-08-31 13:54 | ECHOD_ITS ---
Reason For Study: CAD/ASHD Procedure This was a 2D Doppler, Color Flow transthoracic echocardiogram. Exam performed in department. Left Ventricle Normal size and thickness. The left ventricular ejection fraction is 65 %. Diastolic function is indeterminate. Right Ventricle Normal right ventricle. Atria The left and right atria are normal. Mitral Valve Trivial mitral valve insufficiency. Tricuspid Valve Trivial tricuspid valve insufficiency. Right ventricular systolic pressure estimated to be 39 mmHg. Aortic Valve Normal aortic valve. Pulmonic Valve The pulmonic valve is not well visualized. Great Vessels Normal sized aortic root. Pericardium/Pleural No pericardial effusion. MMode/2D Measurements & Calculations LVIDd: 4.0 cm IVSd: 0.84 cm Ao root diam: 3.4 cm LVIDs: 2.2 cm LVPWd: 0.85 cm LA dimension: 2.7 cm FS: 43.4 % LAV(MOD-bp): 19.7 ml LVAd ap4: 17.4 cm2 SV(MOD-sp4): 27.2 ml LAV(MOD-bp) Indexed: 12.9 ml/m2 LVLd ap4: 6.3 cm LAV(MOD-sp2): 25.0 ml EDV(MOD-sp4): 39.0 ml LAV(MOD-sp4): 14.5 ml EDV(sp4-el): 41.2 ml LVAs ap4: 8.4 cm2 LVLs ap4: 5.2 cm ESV(MOD-sp4): 11.8 ml ESV(sp4-el): 11.6 ml EF(MOD-sp4): 69.7 % EF(sp4-el): 71.9 % SV(sp4-el): 29.6 ml LA A4 area: 8.1 cm2 RA A4 area: 9.2 cm2 TAPSE: 1.9 cm Time Measurements MV dec time: 0.22 sec Doppler Measurements & Calculations MV E max konrad: 69.8 cm/sec Lat Peak E' Konrad: 8.5 cm/sec Med Peak E' Konrad: 7.7 cm/sec MV A max konrad: 87.3 cm/sec E/E' lat: 8.2 E/E' med: 9.1 MV E/A: 0.80 MV V2 max: 95.6 cm/sec MV P1/2t max konrad: 91.1 cm/sec Ao V2 max: 106.4 cm/sec MV max P.7 mmHg MV P1/2t: 72.6 msec Ao max P.5 mmHg MV V2 mean: 53.8 cm/sec MV dec slope: 367.3 cm/sec2 MV mean P.4 mmHg MV V2 VTI: 22.4 cm MVA(P1/2t): 3.0 cm2 LV V1 max: 92.8 cm/sec PA V2 max: 80.4 cm/sec TR max konrad: 294.7 cm/sec LV V1 max P.4 mmHg TR max P.7 mmHg ECHO/Echo Complete Interpretation Summary The left ventricular ejection fraction is 65 %. Diastolic function is indeterminate. Right ventricular systolic pressure estimated to be 39 mmHg. Ordering Physician: Darya Serrano Referring Physician: Darya Serrano Performed By: Dakota Rangel RUST
== END | disposition home or self-care (01) ==
LOC: CVS 13:53
PROVIDERS: PCP Student in an Organized Health Care Education/Training Program; Referring Provider Internal Medicine Cardiovascular Disease; Visit Provider Internal Medicine Cardiovascular Disease
DX: I25.10 Atherosclerotic heart disease of native coronary artery without angina pectoris (principal); Z95.5 Presence of coronary angioplasty implant and graft; R06.02 Shortness of breath; R53.83 Other fatigue
CPT/HCPCS: 93306

== ENCOUNTER → 2023-09-28 | Outpatient (CLI) | payer MEDICARE, SELFPAY ==
--- NOTE | 2023-10-07 11:32 | STRESSREP_ITS ---
Stress Test Report Date: 09/28/2023 Procedure: Exercise tolerance test/imaging study Indications: CAD, dyspnea on exertion Consent: Per the patient Procedure: The patient exercised on a Josh protocol for 4 minutes and 5 seconds achieving a peak heart rate of 147 bpm (95% predicted maximal heart rate) with a peak blood pressure 188/100 mmHg and a peak MET capacity of 7 METs. The baseline ECG demonstrated normal sinus rhythm. The peak exercise ECG demonstrated no significant ischemic changes. EKG during recovery revealed no significant ischemic changes [There were no significant cardiac dysrhythmias pretest, during exercise, or recovery]. The functional capacity was considered normal for age. There was [no complaint of chest discomfort during exercise or recovery]. The examination was discontinued secondary to dyspnea. Impression: 1. Technically adequate (percent predicted maximal heart rate greater than 85%) exercise tolerance test 2. Stress test is negative for exercise-induced EKG changes of ischemia 3. The test test is negative for exercise-induced chest pain 4. Functional capacity is normal for age 5. Nuclear images pending Myocardial perfusion imaging study: Technique: The patient was injected with 10.5 mCi of technetium 99m Cardiolite and subsequently rest SPECT Cardiolite nuclear imaging was obtained in the horizontal long, vertical long, and short axis views. The patient exercised on a Josh protocol. Please see above for details. The patient was injected with 35.2 mCi of technetium 99m Cardiolite and subsequently stress SPECT Cardiolite nuclear imaging was obtained in the horizontal long, vertical long, and short axis views. A gated Cardiolite study at peak stress was obtained. Interpretation: Rest and stress SPECT Cardiolite nuclear imaging status post realignment, normalization, and attenuation correction, demonstrates no evidence of significant ischemia or infarction. The gated Cardiolite study demonstrates no significant regional wall motion abnormalities. The reported LVEF is greater than 70%. Impression: 1. There is no evidence of significant ischemia or infarction. 2. The gated Cardiolite study reports an LVEF of greater than 70%. This note was generated with [employer] software. It may contain incorrect words, spelling, and punctuation that were not noted in checking the note before signing.
== END | disposition home or self-care (01) ==
LOC: CVS 06:47
PROVIDERS: PCP Student in an Organized Health Care Education/Training Program; Referring Provider Internal Medicine Cardiovascular Disease; Visit Provider Internal Medicine Cardiovascular Disease
DX: R06.00 Dyspnea, unspecified (principal); I50.32 Chronic diastolic (congestive) heart failure; I11.0 Hypertensive heart disease with heart failure; I73.9 Peripheral vascular disease, unspecified; I25.10 Atherosclerotic heart disease of native coronary artery without angina pectoris; Z95.5 Presence of coronary angioplasty implant and graft; R53.83 Other fatigue
CPT/HCPCS: 78452; 93017; A9500; A4216

== ENCOUNTER → 2023-11-05 | Outpatient (CLI) | payer MEDICARE, SELFPAY ==
--- NOTE | 2023-11-05 14:00 | MRI_ITS ---
EXAM: MR LUMBAR SPINE WITHOUT INTRAVENOUS CONTRAST CLINICAL INDICATION: DDD LUMBAR TECHNIQUE: Multiplanar and multisequence MR images of the lumbar spine without intravenous contrast. COMPARISON: None. FINDINGS: VERTEBRAE: No acute fracture. Moderate S-shaped scoliosis of the thoracolumbar spine. No spondylolisthesis. There is preservation of the normal lumbar lordosis. SPINAL CORD: Unremarkable. Normal position and signal intensity of the conus medullaris. SOFT TISSUES: Bilateral renal cysts measure up to 5.1 cm. 1.3 cm T2 hypointense lesion in the right kidney is consistent with hemorrhagic cyst. Small dependent stones in the gallbladder. DISCS/SPINAL CANAL/NEURAL FORAMINA: T12-L1: Normal disc height and morphology. Normal bilateral facet joints. Normal central canal. Normal bilateral lateral recesses. Normal intervertebral neural foramina. L1-2: Disc dehydration and moderate disc space narrowing. Mild spondylotic bar. No canal stenosis. Left foraminal encroachment due to spurring. L2-3: Disc dehydration and mild disc space narrowing. Mild, noncompressive spondylotic bar. No canal stenosis. Foramina are patent. L3-4: Marked disc space narrowing. Mild, noncompressive spondylotic bar. No canal stenosis. Mild left foraminal encroachment due to spurring. L4-5: Disc dehydration and moderate disc space narrowing. 4 mm anterolisthesis with unilateral right spondylolysis. No canal stenosis. Moderate facet hypertrophy. Severe right foraminal stenosis due to anterolisthesis and spurring. L5-S1: Normal disc height and morphology. Normal bilateral facet joints. Normal central canal. Normal bilateral lateral recesses. Normal intervertebral neural foramina. 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 MRI/Spine Lumbar (Routine) IMPRESSION: Moderate thoracolumbar scoliosis. Mild L4-5 anterolisthesis and unilateral spondylolysis. Severe L4-5 foraminal stenosis. Cholelithiasis. Bilateral renal cysts, including hemorrhagic right renal cyst. Electronically Signed: Neeru Villagran MD at 19:25 EST Reading Location ID and State: [id number] / Tel , Service support ,
== END | disposition home or self-care (01) ==
PROVIDERS: PCP Student in an Organized Health Care Education/Training Program; Referring Provider Clinical Nurse Specialist Adult Health; Visit Provider Clinical Nurse Specialist Adult Health
DX: M51.36 Other intervertebral disc degeneration, lumbar region (principal)
CPT/HCPCS: 72148

== ENCOUNTER → 2024-03-21 | Outpatient (CLI) | payer MEDICARE, SELFPAY ==
--- NOTE | 2024-03-21 10:14 | MRI_ITS ---
STUDY: MRI RIGHT HIP REASON FOR EXAM: Female, 78 years old. Subtle avascular necrosis. TECHNIQUE: Standardized fat and water weighted pulse sequences were obtained in all 3 orthogonal planes. COMPARISON: Right hip radiographs dated 02/13/2024. FINDINGS: There is a small tear of the right anterior acetabular labrum (sagittal PD series 9 image 14). Intact right hip joint without articular joint space narrowing. Normal acetabulum. There is tiny marginal osteophyte formation of the right femoral head. Intact femoral neck and intratrochanteric region. There is no demonstrated fracture or avascular necrosis. Normal gluteus minimus, medius and iliopsoas tendons and distal insertions. There is no trochanteric, iliopsoas or iliopectineal bursitis. Normal superior and inferior pubic rami. Normal pubic symphysis. Normal ischial tuberosity. Normal origin of the hamstring tendons. Normal visualized iliac wing, sacroiliac joint, and sacral ala. There is a 6.2 cm cyst in the inferior pole of the right kidney. There is degenerative disc disease in the lumbar spine with levoscoliosis. There is chronic sigmoid diverticulosis without acute diverticulitis. MRI/Lower Ext Joint Only (Routine) IMPRESSION: Small tear of the right anterior acetabular labrum. Minimal degenerative arthrosis of the right hip joint. No fracture or avascular necrosis. Degenerative disc disease in the lumbar spine with levoscoliosis. Chronic sigmoid diverticulosis without acute diverticulitis. Electronically Signed: Ernst Florentino MD at 15:23 EDT ,
== END | disposition home or self-care (01) ==
LOC: MRI 10:11
PROVIDERS: PCP Student in an Organized Health Care Education/Training Program; Referring Provider Clinical Nurse Specialist Adult Health; Visit Provider Clinical Nurse Specialist Adult Health
DX: Q65.89 Other specified congenital deformities of hip (principal); M16.11 Unilateral primary osteoarthritis, right hip
CPT/HCPCS: 73721

== ENCOUNTER → 2024-08-06 | Outpatient (CLI) | payer MEDICARE, SELFPAY ==
--- NOTE | 2024-08-06 14:20 | NEURO ---
NCS and/or EMG Patient Report Ordering Doctor: Franklyn Arthur DATE OF SERVICE: 08/06/24 Cherelle presents with complaints of pain in the right side of the neck and a dull pain in the right arm. She has numbness and the fingertips of digits 2 through 4. Electrodiagnostic findings: Right median motor nerve demonstrates normal distal latency, amplitude with borderline reduced conduction velocity. Right ulnar motor response is within normal limits. Normal right median sensory latency at the wrist. Normal right median palmar response. Normal right ulnar and radial sensory sponsors. Needle EMG testing was performed the right upper limb. All muscles tested, including the cervical paraspinals, showed no evidence of denervation with normal motor unit action potentials. Electrodiagnostic impression: This is normal electrodiagnostic study of the right upper limb. There is no electrodiagnostic evidence for peripheral neuropathy, including carpal tunnel or cubital tunnel syndrome. There is no electrodiagnostic evidence for cervical radiculopathy. Multi Select Codes Neurology Neurology Interp Codes: 72990-47 Musc test done w/n test comp (interp) and 72732-35 Nrv cndj test 7-8 studies (interp)
== END | disposition home or self-care (01) ==
PROVIDERS: PCP Student in an Organized Health Care Education/Training Program; Referring Provider Orthopaedic Surgery; Visit Provider Orthopaedic Surgery
DX: M54.12 Radiculopathy, cervical region (principal); R20.2 Paresthesia of skin
CPT/HCPCS: 95886; 95910

== ENCOUNTER → 2024-10-17 | Outpatient (CLI) | payer MEDICARE, SELFPAY ==
--- NOTE | 2024-10-17 06:47 | ECHOD_ITS ---
Reason For Study: DYSPNEA Procedure This was a 2D Doppler, Color Flow transthoracic echocardiogram. Exam performed in department. Left Ventricle Normal size and thickness. The left ventricular ejection fraction is 65 %. Stage 1 diastolic dysfunction. Right Ventricle Normal right ventricle. Atria The left and right atria are normal. Mitral Valve The mitral valve is structurally normal. No prolapse or stenosis seen. Tricuspid Valve Trivial tricuspid valve insufficiency. Unable to estimate RV systolic pressure due to insufficient tricuspid regurgitant envelope. Aortic Valve Trisinus/trileaflet aortic valve. Pulmonic Valve Normal pulmonic valve. Great Vessels Normal sized aortic root. Mildly atherosclerotic abdominal aorta. Pericardium/Pleural No pericardial effusion. MMode/2D Measurements & Calculations LVIDd: 3.9 cm IVSd: 0.88 cm LVOT diam: 2.0 cm LVIDs: 2.3 cm LVPWd: 0.86 cm LVOT area: 3.2 cm2 RVDd: 2.3 cm FS: 39.8 % Ao root diam: 3.2 cm asc Aorta Diam: 3.8 cm LAV(MOD-bp): 15.1 ml LAV(MOD-bp) Indexed: 10.1 ml/m2 LAV(MOD-sp2): 17.2 ml LAV(MOD-sp4): 12.4 ml SV(MOD-sp4): 25.8 ml SV(sp4-el): 28.0 ml LVAd ap4: 17.7 cm2 LVLd ap4: 6.5 cm SI(MOD-sp4): 17.3 ml/m2 EDV(MOD-sp4): 39.4 ml EDV(sp4-el): 40.7 ml LVAs ap4: 8.7 cm2 LVLs ap4: 5.0 cm ESV(MOD-sp4): 13.6 ml ESV(sp4-el): 12.7 ml EF(MOD-sp4): 65.4 % EF(sp4-el): 68.7 % LA A4 area: 7.4 cm2 LA dimension(2D): 2.5 cm RA A4 area: 8.8 cm2 Time Measurements MV dec time: 0.22 sec Doppler Measurements & Calculations MV E max konrad: 57.8 cm/sec Lat Peak E' Konrad: 7.0 cm/sec Med Peak E' Konrad: 5.5 cm/sec MV A max konrad: 94.5 cm/sec E/E' lat: 8.2 E/E' med: 10.5 MV E/A: 0.61 MV V2 max: 85.5 cm/sec Ao V2 max: 94.8 cm/sec MV max P.9 mmHg MV dec slope: 269.6 cm/sec2 Ao max P.6 mmHg MV V2 mean: 49.7 cm/sec Ao V2 mean: 66.3 cm/sec MV mean P.1 mmHg Ao mean P.0 mmHg MV V2 VTI: 25.9 cm Ao V2 VTI: 21.1 cm AV (velocity ratio): 1.0 MVA(VTI): 2.7 cm2 CHRISTIAN(I,D): 3.3 cm2 CHRISTIAN(V,D): 3.1 cm2 LV V1 max: 92.4 cm/sec SV(LVOT): 69.5 ml PA V2 max: 96.4 cm/sec LV V1 max P.4 mmHg PA V2 mean: 65.9 cm/sec LV V1 mean P.0 mmHg LV V1 mean: 66.2 cm/sec LV V1 VTI: 22.0 cm ECHO/Echo Complete Interpretation Summary The left ventricular ejection fraction is 65 %. Stage 1 diastolic dysfunction. Mildly atherosclerotic abdominal aorta Ordering Physician: Darya Serrano Referring Physician: Darya Serrano Performed By: Bette Martinez RCS
[2024-10-17 10:10] LABS: ALB/GLOB Ratio 1.2 RATIO (0.9-2.4); AST(SGOT) 14 U/L (15-37); Alanine Aminotransfer ALT/SGPT 14 U/L (13-56); Albumin, Serum 3.6 g/dL (3.2-5.0); Alkaline Phosphatase 74 U/L (45-117); Anion Gap 5 (5-15); BUN 15 mg/dL (7-18); BUN/Creat Ratio 18.7 RATIO (10-20); CPK Total, Creatine Kinase 82 U/L (26-192); Calcium,Total 8.7 mg/dL (8.5-10.1); Chloride 105 mmol/L (98-107); Cholesterol 222 mg/dL (200); EST Glomerular Filtration Rate 74 mL/min (>60); Est Glom Filt Rate - Afr Amer 89 mL/min (>60); Glucose 68 mg/dL (74-106); High Density Lipoprotein 96 mg/dL; Potassium 3.8 mmol/L (3.5-5.1); Protein, Total 6.6 g/dL (6.4-8.2); Sodium Level 141 mmol/L (136-145); Triglycerides 93 mg/dL; Very Low Density Lipoprotein 19 mg/dL (5-40)
--- NOTE | 2024-10-20 09:13 | STRESSREP_ITS ---
Stress Test Report Date: 10/17/2024 Procedure: Pharmacologic stress nuclear imaging study Indications: Dyspnea Consent: Per the patient Procedure: The patient underwent pharmacologic (Regadenoson 0.4mg ) evaluation with a peak heart rate of 102 beats per minute (71%predicted maximal heart rate) and a peak blood pressure of 142/72 mmHg. The baseline ECG demonstrated sinus rhythm. The peak pharmacologic ECG demonstrated no ischemic changes. There were no cardiac dysrhythmias pretest, during pharmacologic infusion, or recovery. There was no complaint of chest discomfort during pharmacologic infusion or recovery. The patient was injected with 11.4 millicuries of technetium 99m Cardiolite and subsequently rest SPECT Cardiolite nuclear imaging was obtained in the horizontal long, vertical long, and short axis views. The patient underwent pharmacologic (Regadenoson) evaluation. The patient was injected with 34.6 millicuries of technetium 99m Cardiolite and subsequently stress SPECT Cardiolite nuclear imaging was obtained in the horizontal long, vertical long, and short axis views. A gated Cardiolite study at peak stress was obtained. The examination was stopped secondary to completion of protocol. Rest and stress SPECT Cardiolite nuclear imaging status post realignment, normalization, and attenuation correction demonstrate no fixed or reversible perfusion defects. There is end systolic thickening and brightening. The gated Cardiolite study demonstrates myocardial thickening and inward wall motion. The reported LVEF is 84%. Impression: 1. Pharmacologic (Regadenoson) evaluation 2. Peak pharmacologic ECG with no ischemic changes. 3. There were no cardiac dysrhythmias pretest, during pharmacologic infusion, or recovery. 5. Rest and stress SPECT Cardiolite nuclear imaging demonstrate relative uniform tracer uptake and myocardial perfusion appearing within normal limits. 6. The gated Cardiolite study reports an LVEF of 84%. This note was generated with [employer] software. It may contain incorrect words, spelling, and punctuation that were not noted in checking the note before signing.
== END | disposition home or self-care (01) ==
PROVIDERS: PCP Student in an Organized Health Care Education/Training Program; Referring Provider Internal Medicine Cardiovascular Disease; Visit Provider Internal Medicine Cardiovascular Disease
DX: I11.0 Hypertensive heart disease with heart failure (principal); I50.32 Chronic diastolic (congestive) heart failure; R53.83 Other fatigue; I79.8 Other disorders of arteries, arterioles and capillaries in diseases classified elsewhere; R06.00 Dyspnea, unspecified
CPT/HCPCS: 36415; 78452; 80053; 80061; 82550; 93017; 93306; A9500; A4216; J2785

== ENCOUNTER 2025-03-29 20:09 | Emergency (ER) | payer MEDICARE, SELFPAY ==
[2025-03-29 20:10] VITALS: BP 143/91; PULSE 81; RESP 18; TEMP 37; O2SAT 94; BMI 19.9
--- NOTE | 2025-03-29 20:49 | EDS_ITS ---
HPI HPI - GI History of Present Illness Chief Complaint: Abd Pain Informant: patient and spouse/S.O. Narrative Narrative: 79-year-old female presenting to the emergency room with abdominal pain. Patient states that on Sunday she developed chills. She also has developed what she describes as an upper abdominal pain and make even having the ground touch her skin is painful. She notes associated nausea, 4 hours of diarrhea last night, and headache. No reported fever. She notes a prior hysterectomy but no other abdominal surgeries. has been feeling well. She denies any urinary symptoms. PFSH PFS Medical History Hypertension as manifestation of blood transfusion reaction COVID-19 PAD (peripheral artery disease) Other disorders of arteries, arterioles and capillaries in diseases classified elsewhere Leg pain Injury of right hip Right ankle injury Head injury Fall TIA (transient ischemic attack) Presence of stent in coronary artery (~08/12/15) Essential hypertension HLD (hyperlipidemia) HTN (hypertension) Subendocardial myocardial infarction Fatigue Atherosclerotic heart disease of [place] coronary artery without angina pectoris Dyspnea Abnormal results of pulmonary function studies [place] (obstructive sleep apnea) Other chest pain CHF (congestive heart failure) Abnormal cardiac enzyme level Scoliosis Headache Hypothyroidism Trigeminal neuralgia Home Medications ?Medication ?Instructions ?Recorded ?Last Taken ?Type carbamazepine 200 mg tablet 200 mg PO BIDCM nerve pain 04/04/16 01/16/20 History nitroglycerin 0.4 mg sublingual 0.4 mg sublingual Q5M PRN CHEST 02/27/22 Unknown Rx tablet PAIN #25 tabs biotin 3,000 mcg-silicon dioxide 1 tab PO BID 09/05/22 Unknown History 100 [id number] 50 mg tablet ER calcium 315 mg (as 1 tab PO BID 09/05/22 Unknow n History citrate)-vitamin D3 5 mcg (200 unit) tablet (Calcium Citrate + D) levothyroxine 75 mcg tablet 75 mcg PO .SASUTUTH thyroi d 08/28/23 Unknown History levothyroxine 75 mcg tablet 150 mcg PO MOWEFR 08/28/23 Unknown History metoprolol tartrate 25 mg tablet 25 mg PO BID #180 tab s 09/22/24 Unknown Rx etodolac 200 mg capsule 200 mg PO BID 09/25/24 Unkno wn History magnesium aspart,citrate,oxide mg PO DAILY 09/25/24 Un known History omeprazole 20 mg capsule,delayed 20 mg PO QDAY 4 Unknown History release aspirin 81 mg chewable tablet 81 mg PO DAILY@0800 [facility] 03/09/25 Unknown History rosuvastatin 10 mg tablet 10 mg PO DAILY #30 tabs 02/24 03/20 Unknown Rx amoxicillin 875 mg-potassium 875 mg PO Q12H #14 TABLET S 03/29/25 Unknown Rx clavulanate 125 mg tablet hydrocodone-acetaminophen 5-325mg 1 tab PO Q6H PRN PRN Pain 3 days 03/29/25 Unknown Rx 5mg-325mg #12 TABLETS ondansetron 4 mg disintegrating 4 mg PO Q6H PRN PRN Na usea #15 tabs 03/29/25 Unknown Rx tablet Allergy/AdvReac Type Severity Reaction Status Date / Time diphtheria,pertussis Allergy Hives Verified 03/29/25 20:10 (acellular),te (From Adacel(Tdap Adolesn/Adult)(PF)) Sulfa (Sulfonamide Allergy Rash Verified 03/29/25 20:10 Antibiotics) Family History Father Cancer Mother Breast cancer Surgical History History of total hysterectomy Presence of coronary angioplasty implant and graft (~08/12/15) History of left heart catheterization (LHC) H/O partial thyroidectomy (~11/16/11) Social History Smoking Status: Never smoker alcohol intake: never substance use type: does not use caffeine: Yes Type: carbonated beverages, coffee and tea what type of physical activity do you participate in: other details: PT frequency: 1-2 times per week duration: 30-45 minutes/day seatbelt use: always do you feel safe at home: Yes ROS ROS ED Constitutional Constitutional ED: Reports chills; Denies fever(s) or weight loss Eyes Eyes: Denies change in vision or diplopia ENT ENT ED: Denies ear pain, rhinorrhea or sore throat Cardiovascular Cardiovascular: Denies chest pain, orthopnea, palpitations or racing heartbeat Respiratory/Chest Respiratory/Chest: Denies cough, dyspnea or orthopnea Gastrointestinal Gastrointestinal: Reports abdominal pain, diarrhea and nausea; Denies vomiting Genitourinary Genitourinary ED: Denies dysuria, hematuria or urinary frequency Musculoskeletal Musculoskeletal: Denies arthralgias or myalgias Integumentary Denies abscess or rash Neurologic Neurologic: Reports headache(s); Denies weakness Psychiatric Psychiatric: Denies anxiety, depression, suicidal ideation or suicidal thoughts Endocrine Endocrinology: Denies polydipsia, polyphagia or polyuria Allergic/Immunologic Allergic/Immunologic ED: Denies mouth swelling, tongue swelling or urticaria EXAM Physical Exam Const Vital Signs: 03/29/25 20:10 03/29/25 22:09 Temperature 98.6 F Temperature Source Oral Pulse Rate 81 72 Respiratory Rate 18 Blood Pressure 143/91 H 138/71 H Blood Pressure Mean 108 93 Pulse Ox 94 Oxygen Delivery Method Room Air Positive well nourished and well developed General Appearance ED: well developed and NAD HEENT Reports normocephalic, head/scalp atraumatic and moist mucous membranes Eyes PERRL and EOMs intact bilaterally Neck no lymphadenopathy, supple and no JVD Resp normal respiratory effort and clear to auscultation bilaterally Cardio regular rate, regular rhythm and no murmurs GI Inspection: Negative for abdominal distention Auscultation: normoactive bowel sounds Palpation: soft and tender other (Diffuse tenderness to palpation with guarding); Negative for rebound tenderness present Back/Spine no CVA tenderness and normal ROM Extremity normal to inspection General Extremety ED: Negative for edema General Extremity: Negative for edema Neuro oriented x3 and CN's II-XII intact bilaterally Sensorium / Orientation: alert Motor Exam: strength 5/5 throughout Psych mental status grossly normal Mood & Affect: Negative for depressed or tearful Skin no rashes or lesions noted and no wounds MDM MDM MDM Narrative Medical decision making narrative: Differential diagnosis includes but not limited to pancreatitis biliary colic colitis dehydration electrolyte abnormalities UTI shingles ischemia, aortic aneurysm diverticulitis volvulus bowel obstruction Patient's white count returns at 5.1 with a hemoglobin of 13.5 and platelet count of 245. BMP shows a creatinine 0.80 normal sodium potassium normal LFTs and lipase urinalysis with 0-5 white cells 0-5 red cells 2+ bacteria negative nitrates. (Patient with no dysuria or frequency) CT then pelvis with IV contrast was obtained. This was read by radiology reviewed by myself. Please see radiologist read for full details. There was some mild inflammation noted around the rectosigmoid area of questionable clinical significance in the s etting of diffuse abdominal pain with skin sensitivity. Patient received IV fluids as well as a dose of Dilaudid and Zofran. She has been resting more comfortably. I personally reexamined the skin I do not see any lesions to suggest shingles. I can write for some nausea and pain medication for home use. They are right also for some Augmentin given the inflammation noted in the rectosigmoid area. I have asked for PCP follow-up if continued symptoms return if worsening or concerns. History & Record Review Discussion w/independent historian: Patient, Family and Significant other Additional record(s) reviewed:: Prior ED visit and Prior labs Lab Data Attestation: I reviewed the patient's lab results. Labs: Laboratory Results - last 24 hr 03/29/25 03/29/25 20:22 21:00 WBC 5.1 RBC 4.05 L Hgb 13.5 Hct 39.6 MCV 97.8 MCH 33.3 H MCHC 34.1 RDW Std Deviation 41.7 RDW Coeff of Oliverio 11.6 Plt Count 245 MPV 9.8 Immature Gran % (Auto) 0.200 Neut % (Auto) 48.3 Lymph % (Auto) 37.4 Johnson % (Auto) 13.1 H Eos % (Auto) 0.6 Baso % (Auto) 0.4 Absolute Neuts (auto) 2.5 Absolute Lymphs (auto) 1.92 Nucleated RBC % 0 Platelet Estimate ADEQUATE RBC Morphology NORM C+C Sodium 137 Potassium 3.6 Chloride 98 Carbon Dioxide 27.9 Anion Gap 11 BUN 14 Creatinine 0.80 Estim Creat Clear Calc 43.73 L Est GFR (MDRD) Non-Af 76 BUN/Creatinine Ratio 17.6 Glucose 122 H Calcium 9.0 Total Bilirubin 0.33 Direct Bilirubin 0.16 AST 25 ALT 13 Alkaline Phosphatase 66 Total Protein 6.3 Albumin 3.9 Globulin 2.4 Lipase 36 Urine Color Yellow Urine Clarity Clear Urine pH 6.5 Ur Specific [place] 1.010 Urine Protein 15 H Urine Glucose (UA) Normal Urine Ketones Negative Urine Occult Blood 25 H Urine Nitrite Negative Urine Bilirubin 3 H Urine Urobilinogen Normal Ur Leukocyte Esterase 25 H Urine RBC 0-5 SEEN Urine WBC 0-5 SEEN Ur Squamous Epith Cells 0-5 SEEN Ur Renal Epithelial Cell 0-5 SEEN Urine Bacteria 2+ Urine Mucus 0 SEEN Radiography Diagnostic Testing: Clinical Impression(s) from Imaging Studies Abdomen/Pelvis CT 03/29/25 21:42 IMPRESSION: *Diffuse rectosigmoid wall thickening, concerning for acute proctocolitis. *Colonic diverticulosis without diverticulitis. *Other findings as described above. [facility] T[facility] Chief Complaint: Abd Pain ED Provider: Lenin Chan Dx/Rx/DC Orders Clinical Impression: Abdominal pain, Nausea Instructions: Abdominal Pain Prescriptions: New hydrocodone-acetaminophen 5-325 mg tablet 1 tab PO Q6H PRN PRN (Reason: Pain) 3 Days Qty: 12 0RF ondansetron 4 mg tablet,disintegrating 4 mg PO Q6H PRN PRN (Reason: Nausea) Qty: 15 0RF amoxicillin-pot clavulanate 875-125 mg tablet 875 mg PO Q12H Qty: 14 0RF No Action levothyroxine 75 mcg tablet 75 mcg PO .SASUTUTH nitroglycerin 0.4 mg tablet, sublingual 0.4 mg SUBLINGUAL Q5M PRN (Reason: CHEST PAIN) Qty: 25 2RF calcium citrate-vitamin D3 [Calcium Citrate + D] 315 mg-5 mcg (200 unit) tablet 1 tab PO BID biotin-silicon [id number] 3,000 mcg -100 mg-50 mg tablet extended release 1 tab PO BID levothyroxine 75 mcg tablet 150 mcg PO MOWEFR etodolac 200 mg capsule 200 mg PO BID magnesium aspart,citrate,oxide 400 mg magnesium capsule PO DAILY omeprazole 20 mg capsule,delayed release(DR/EC) 20 mg PO QDAY rosuvastatin 10 mg tablet 10 mg PO DAILY Qty: 30 11RF aspirin 81 mg tablet,chewable 81 mg PO DAILY@0800 Patient Comments: heart health carbamazepine 200 MG tablet 200 mg PO BIDCM metoprolol tartrate 25 mg tablet 25 mg PO BID Qty: 180 3RF Primary Care Provider: Salbador Krueger Referrals: Salbador Krueger DO [Primary Care Provider] - (IN 2-3 DAYS IF NOT IMPROVING) Print Language: Azeri Disposition Disposition: Home, Self Care
[2025-03-29] MEDS: 0.9% Normal Saline (1000mL) 1,000 ML 999 ML IV (21:00)
[2025-03-29] MEDS: Ondansetron 4 MG/2 ML Vial IV (21:00)
[2025-03-29] MEDS: HYDROmorphone 1 MG/ML Syringe 0.5 MG IV (21:01)
[2025-03-29 21:02] LABS: Absolute Lymphocyte Count 1.92 X10^3/uL (0.83-4.51); Absolute Neutrophil Count 2.5 X10^3/uL (2.0-7.7); Basophil# 0.02 X10^3/uL; Basophil% 0.4 % (0-1); Eosinophil# 0.03 X10^3/uL; Eosinophils% 0.6 % (0-5); Hematocrit 39.6 % (37-47); Hemoglobin 13.5 g/dL (12.0-15.0); Lymphocyte # 1.92 X10^3/ul (0.83-4.51); Lymphocyte % 37.4 % (19-41); Mean Corp Hgb Conc 34.1 g/dL (32-36); Mean Corpuscular Hgb 33.3 pg (27.0-32.0); Mean Corpuscular Volume 97.8 fL (81-99); Mean Platelet Vol. 9.8 fl (6.2-12.0); Monocyte# 0.67 X10^3/uL; Monocyte% 13.1 % (0-10); NRBC Flagged by Analyzer 0 % (0-5); Neutrophil # 2.48 X10^3/uL (2.7-7.7); Neutrophil % 48.3 % (47-70); POSITIVE MORPHOLOGY YES; Platelet Count 245 K/mm3 (150-450); RBC Distribution Width CV 11.6 % (11.6-14.6); RBC Distribution Width SD 41.7 fl (35.1-43.9); Red Blood Count 4.05 M/mm3 (4.2-5.4); White Blood Count 5.1 K/mm3 (4.4-11.0)
[2025-03-29 21:11] LABS: Mucous, Urine 0 SEEN /hpf (<or=2+)
[2025-03-29 21:13] LABS: Color, Urine Yellow (Yellow); Glucose, Dipstick Normal (Normal); Ketone-Dipstick Negative (Negative); Leukocyte Esterase-Dipstick 25 /ul (Negative); Nitrite-Dipstick Negative (Negative); Occult Blood-Urine 25 /ul (Negative); Protein-Dipstick 15 mg/dl (Negative); Urine Clarity Clear (Clear); Urine Urobilinogen Normal (Normal); Urine pH 6.5 (5.0 - 8.0)
[2025-03-29 21:15] LABS: Urine Bilirubin Dipstick 3 mg/dL (Negative)
[2025-03-29 21:21] LABS: Bacteria 2+ /hpf (None Seen); Red Blood Cells-Urine 0-5 SEEN /hpf (0-5); Squamous Epithelial Cells - UA 0-5 SEEN /hpf (5-10); White Blood Cells 0-5 SEEN /hpf (0-5)
[2025-03-29 21:22] LABS: Renal Epithelial Cells 0-5 SEEN /hpf (0-5)
[2025-03-29 21:24] LABS: Differential Indicated SCAN CRITERIA MET
[2025-03-29 21:25] LABS: Platelet Estimate ADEQUATE (ADEQ)
[2025-03-29 21:26] LABS: Red Cell Morphology NORM C+C NORMAL (NORM C&C)
[2025-03-29 21:38] LABS: AST(SGOT) 25 U/L (<=31); Alanine Aminotransfer ALT/SGPT 13 U/L (<=34); Albumin, Serum 3.9 g/dL (3.4-4.8); Alkaline Phosphatase 66 U/L (35-104); Anion Gap 11 (5-15); BUN 14 mg/dL (4-19); BUN/Creat Ratio 17.6 RATIO (10-20); Bilirubin, Direct 0.16 mg/dL (0.00-0.30); Carbon Dioxide 27.9 mmol/L (21.0-32.0); Chloride 98 mmol/L (98-108); EST Glomerular Filtration Rate 76 (>60); Estimated Creatinine Clearance 43.73 ml/min (50-250); Globulin 2.4 g/dL (2.2-4.2); Glucose 122 mg/dL (70-99); Lipase 36 U/L (13-75); Potassium 3.6 mmol/L (3.3-5.1); Protein, Total 6.3 g/dL (5.9-8.4); Sodium Level 137 mmol/L (133-145); Total Bilirubin 0.33 mg/dL (0.00-1.30)
--- NOTE | 2025-03-29 21:42 | CT_ITS ---
PROCEDURE: ABDOMEN/PELVIS W IV CONT ONLY 03/29/2025 REASON FOR EXAM: ABDOMINAL PAIN TECHNIQUE: Abdomen and pelvis CT with intravenous contrast. Coronal and Sagittal reconstruction series were provided. PATIENT PREPARATION: Per protocol ORAL CONTRAST TYPE: None. AMOUNT: mL CONTRAST: Omnipaque 350 VOLUME: 100 mL Not Provided Gauge IV One or more dose reduction techniques were used (e.g., Automated exposure control, adjustment of the mA and/or kV according to patient size, use of iterative reconstruction technique. COMPARISON: None FINDINGS: Lung bases: Bibasilar atelectasis. Liver: Mild hepatomegaly. Craniocaudal length 18 cm. No focal lesion. Gallbladder: No ductal dilation. Cholelithiasis without evidence of cholecystitis. Spleen: Normal size. Small accessory splenule adjacent to the inferior pole of the left kidney. Pancreas: Normal size without evidence of mass surrounding inflammation or ductal dilation. Adrenals: Unremarkable Kidneys: Normal renal sizes. No hydronephrosis. 10 mm right upper pole hypodense lesion, likely a proteinaceous/hemorrhagic cysts. 6.4 cm right inferior pole simple cysts. No calculi. Bladder: Urinary bladder is unremarkable. Reproductive Organs: No pelvic mass. Bowel: Stomach is unremarkable. No bowel dilation. Small bowel is collapsed. Wall thickening and mild surrounding soft tissue stranding involving the rectosigmoid, concerning for mild proctocolitis. Colonic diverticulosis without diverticulitis. Appendix: The appendix is not identified. There is no inflammatory process identified in the right lower quadrant to suggest appendicitis. Lymph nodes: No suspicious lymph node enlargement. Vasculature: Mild diffuse atherosclerotic calcifications are noted. Peritoneum / Retroperitoneum: No pneumoperitoneum. No ascites. Bones: Moderate scoliosis. Degenerative changes of the lumbar spine. Postoperative changes left femoral alireza and screw fixation. Soft tissue: Unremarkable CT/Abdomen/Pelvis W IV Cont ONLY IMPRESSION: *Diffuse rectosigmoid wall thickening, concerning for acute proctocolitis. *Colonic diverticulosis without diverticulitis. *Other findings as described above. Reading Location[facility]
[2025-03-29 22:09] VITALS: BP 138/71; PULSE 72
[2025-03-29 23:26] VITALS: BP 138/75; PULSE 75; RESP 16; TEMP 37; O2SAT 94
== END 2025-03-29 23:27 | disposition home or self-care (01) ==
PROVIDERS: Emergency Provider Emergency Medicine; PCP Student in an Organized Health Care Education/Training Program; Visit Provider Emergency Medicine
DX: R10.9 Unspecified abdominal pain (principal); I11.0 Hypertensive heart disease with heart failure; I50.9 Heart failure, unspecified; I25.10 Atherosclerotic heart disease of native coronary artery without angina pectoris; E78.5 Hyperlipidemia, unspecified; R11.0 Nausea; G47.33 Obstructive sleep apnea (adult) (pediatric); Z95.5 Presence of coronary angioplasty implant and graft; Z86.73 Personal history of transient ischemic attack (TIA), and cerebral infarction without residual deficits; Z86.16 Personal history of COVID-19; Z79.82 Long term (current) use of aspirin; Z79.899 Other long term (current) drug therapy
CPT/HCPCS: 74177; 80048; 80076; 81001; 83690; 85025; 96361; 96374; 96375; 99282; Q9967; A4216; J2405